=== PATIENT | female | born 1940 | race Caucasian/White ===

== ENCOUNTER 2017-10-12 20:08 | Emergency (ER) | payer OTHER, MEDICARE ==
[~2017-10-12] VITALS: Ht 162.6 cm; Wt 105.7 kg
[~2017-10-12 20:08] MED LIST: AMARYL1 MG PO; CLEOCIN HCL300 MG PO; KEFLEX500 MG PO; LOSARTAN-HCTZ1 EAC2 PO; METFORMIN; NORCO 5-325 TA1 EACH PO; SYNTHROID100 MCG PO; UNKNOWN BP MED
[2017-10-12] MEDS ORDERED: LOSARTAN-HCTZ1 EAC1 PO (20:36)
[2017-10-12] MEDS ORDERED: METFORMIN HCL1000 MG PO (20:37)
[2017-10-12] MEDS ORDERED: LEVOTHYROXINE200 MC1 PO (20:38)
[2017-10-12] MEDS ORDERED: PROMETHAZINE/C118 ML PO (21:28)
[2017-10-12] MEDS ORDERED: VENTOLIN HFA 1818 GM INH (21:28)
[2017-10-12] MEDS ORDERED: TESSALON PERLE100 MG PO (21:31)
== END 2017-10-12 21:45 | disposition home or self-care (01) ==
LOC: ER 20:08
DX: J20.8 Acute bronchitis due to other specified organisms (principal); B97.89 Other viral agents as the cause of diseases classified elsewhere; E03.9 Hypothyroidism, unspecified; E11.9 Type 2 diabetes mellitus without complications; M19.90 Unspecified osteoarthritis, unspecified site; I10 Essential (primary) hypertension; Z88.0 Allergy status to penicillin; Z88.2 Allergy status to sulfonamides

== ENCOUNTER 2019-09-08 21:44 | Inpatient (IN) | payer OTHER, MEDICARE ==
[~2019-09-08] VITALS: Ht 160 cm; Wt 100.1 kg
[~2019-09-08 21:44] MED LIST changes: +LEVOTHYROXINE200 MC1 PO; +LOSARTAN-HCTZ1 EAC1 PO; +METFORMIN HCL1000 MG PO; +PROMETHAZINE/C118 ML PO; +TESSALON PERLE100 MG PO; +VENTOLIN HFA 1818 GM INH
[2019-09-08 21:45] VITALS: BP 153/73
[2019-09-08 22:37] LABS: ABSOLUTE NEUTROPHILS 11.4 thou/uL (1.4-8.2); BASOPHILS 0.1 % (0.0-2.0); EOSINOPHILS 0.1 % (0.0-3.0); HEMATOCRIT 31.2 % (37.0-47.0); HEMOGLOBIN 10.1 gm/dL (12.0-15.0); LYMPHOCYTES 3.1 % (24.0-44.0); MCH 27.5 pg (26.0-34.0); MCHC 32.5 g/dL (28.0-37.0); MCV 84.7 fL (80.0-100.0); MONOCYTES 3.6 % (1.0-8.0); PLATELET COUNT 398 thou/uL (150-400); POLYS 93.1 % (36.0-66.0); RBC 3.68 mil/uL (4.20-5.00); RDW 14.5 % (10.5-14.5); WBC 12.3 thou/uL (4.0-11.0)
[2019-09-08 22:54] LABS: CALCIUM 9.7 mg/dL (8.5-10.1); POTASSIUM 4.5 mmol/L (3.5-5.1)
[2019-09-08 23:00] LABS: ALBUMIN 3.5 g/dL (3.4-5.0); DIRECT BILIRUBIN 0.1 mg/dL (<0.1-0.2); TOTAL BILIRUBIN 0.6 mg/dL (<0.1-1.0); TOTAL PROTEIN 7.7 g/dL (6.4-8.2)
[2019-09-09] VITALS (17 sets, daily range): BP systolic 129–177; BP diastolic 40–66
[2019-09-09 02:02] LABS: URINE BILIRUBIN NEGATIVE (Negative); URINE BLOOD NEGATIVE (Negative); URINE CLARITY CLEAR; URINE COLOR YELLOW; URINE GLUCOSE-RANDOM* 3+ (Negative); URINE KETONES TRACE (Negative); URINE LEUKOCYTES-REFLEX NEGATIVE (Negative); URINE NITRITE-REFLEX NEGATIVE (Negative); URINE PROTEIN (DIPSTICK) 1+ (Negative); URINE UROBILINOGEN 0.2 E.U./dl (0.2-1.0)
[2019-09-09 02:26] LABS: BACTERIA-REFLEX None Seen /HPF (None Seen); CASTS None Seen /LPF (None Seen); CRYSTALS None Seen /LPF (None Seen); MUCUS None Seen strn/LPF (None Seen); SQUAMOUS 0-3 Few /LPF (0-3); URINE RBC None Seen /HPF (0-2); URINE WBC-REFLEX None Seen /HPF (0-5)
--- NOTE | 2019-09-09 05:04 | NUR ---
PT ADMITTED TO UNIT AROUND 0330. PT NAUSEOUS AND VOMITTING UPON ARRIVAL TO FLOOR. PRN MEDICATION GIVEN FOR RELIEF. PT C/O PAIN ON SCALE OF 8. PT WAS IN AND OUT OF SLEEP FROM PAIN MEDICATION GIVEN PRIOR TO ARRIVAL. PT SEEN BY PHYSICIAN AND IS BEING TAKEN FOR SURGERY PER DR MCKEON. CONSENTS NEED TO BE SIGNED.
--- NOTE | 2019-09-09 20:21 | NUR ---
ASSUMED CARE OF PATIENT AT 0900 FROM OR. PATIENT ASLEEP AFTER GENERAL ANESTHESIA. PATIENT HAS LAP SITES IN PLACE X 3, CDI. PATIENT HAS A LEFT SIDED ELENO DRAIN. PATIENT SLEPT UNTIL MID AFTERNOON AND ASKED FOR PAIN MEDS. PAIN MEDS GIVEN X 2. PATIENT QUICKLY RETURNED TO SLEEP. BEDPAIN USED. FAMILY AT BEDSIDE. ASSESSMENTS CHARTED. PATIENT TO CONTINUE WITH POC.
--- NOTE | 2019-09-09 22:14 | NUR ---
PATIENT ASSESSED AND IS ALERT X 4. SKIN WARM AND DRY. RESP EVEN AND UNLABORED. HAS 4 ABDOMINAL INCISIONS CLOSEDS WITH DURABOND. NO REDDNESS TO AREAS. HAS A ELENO DRAIN TO LEFT ABDOMEN WITH SEROUS ANGUINOUS IN COLOR HAD 70 CC OUT DFURING THE DAY. HAD TO VOID ONLY 50 CC. HAD 150 OUT SINCE 9 AM FROM SURGERY. BLADDER SCANNED AND WAS 349. ORDER WAs if more than 400 cc straight cath x 1. TELE- SHOWS NSR. NG IN RIGHT NARE TO LOW SUCTION. RETURN IS DARK COFFE GROUND LOOKING. ON ROOM AIR. NO EDEMA NOTED. IV INFILTRATED AND RESTARTED IN RIGHT FOREARM WITH # 22. IV FLAUIDS INFUSING WELL. PAIN MED GIVEN WITH GOOD RESULTS. ROLLS FROM SIDE TO SIDE WELL. TCDB HAVE TO ENCOURGE PATIENT TO DO THIS. REMAINS NPO. ACCUCHECKS WILL BE DONE AT 0000. REMAINS A FULL CODE. CONT PLAN OF CARE. WILL MONITOR VOIDING STATUS.
[2019-09-10] VITALS (7 sets, daily range): BP systolic 143–179; BP diastolic 66–82
--- NOTE | 2019-09-10 01:27 | NUR ---
PAIN MEDICATION GIVEN WITH GOOD RELIEF. ALSO VOIDED ANOTHER 50CC. BLADDER SCANNED HER AFTER THAT AND GOT 697 CC SO STRAIGHT CATH HER AND RECEIVED 800 CC. FEELING ALOT BETTER NOW. ABDOMEN SOFT AND NOT TENDER EXCEPT THE INCISIONS. NO REDDNESS NOTED. IV SITE HEALTHY AND HAS FLUIDS INFUSING WELL. CONT TO MONITOR STATUS. REMAINS NPO. WITH NG TUBE IN RIGHT NARE GETTING DARK BROWN RETURN.
[2019-09-10 04:02] LABS: HEMATOCRIT 29.6 % (37.0-47.0); HEMOGLOBIN 9.3 gm/dL (12.0-15.0); MCH 27.2 pg (26.0-34.0); MCHC 31.6 g/dL (28.0-37.0); RBC 3.44 mil/uL (4.20-5.00); RDW 14.4 % (10.5-14.5); WBC 11.7 thou/uL (4.0-11.0)
[2019-09-10 04:14] LABS: CALCIUM 8.7 mg/dL (8.5-10.1); POTASSIUM 4.6 mmol/L (3.5-5.1)
--- NOTE | 2019-09-10 14:29 | NUR ---
pt up to side of bed, dangling legs. complained of pain and "too tired" to stand up. sat on side of bed for 5 minutes, steady, alert and oriented x4.
[2019-09-11 04:51] VITALS: BP 167/75
--- NOTE | 2019-09-11 07:00 | NUR ---
ASSUMED PT CARE AROUND 1900. PT RESTING IN BED. VSS AND C/O PAIN IN KNEES HOWEVER REFUSED PAIN MEDICATION AT THAT TIME. ABD INCISIONS C/D/I. ELENO DRAIN ADEQUATELY. NG DRAIN COFFEE GRAIN WITH OUTPUT MARKED. PT REQUESTED PAIN MEDICATION PRIOR TO SHIFT CHANGE. WILL CONTINUE TO MONITOR PT PER POC.
[2019-09-11 07:05] VITALS: BP 155/69
[2019-09-11 07:20] LABS: HEMATOCRIT 29.6 % (37.0-47.0); HEMOGLOBIN 9.1 gm/dL (12.0-15.0); MCH 26.9 pg (26.0-34.0); MCHC 30.8 g/dL (28.0-37.0); MCV 87.3 fL (80.0-100.0); RBC 3.39 mil/uL (4.20-5.00); RDW 14.9 % (10.5-14.5); WBC 12.1 thou/uL (4.0-11.0)
[2019-09-11 07:35] LABS: ALBUMIN 2.2 g/dL (3.4-5.0); CALCIUM 8.4 mg/dL (8.5-10.1); CREATININE 1.8 mg/dL (0.6-1.0); MAGNESIUM 1.9 mg/dL (1.8-2.4); PHOSPHORUS 2.4 mg/dL (2.5-4.9); POTASSIUM 4.3 mmol/L (3.5-5.1)
--- NOTE | 2019-09-11 10:26 | NUR ---
10am, pt sat on side of bed with minimal assist x2. she stood up and transfered to chair with steady gait, denies dizziness, sitting up in chair, pain rated 1/10. suresh drain was full with 100cc, emptied, will monitor.
[2019-09-11 11:35] VITALS: BP 131/60
--- NOTE | 2019-09-11 12:55 | NUR ---
Pt was well nourished prior to admit, so would consider clinimix PPN instead of TPN. Recommend change IVF to clinimix PPN at 100ml/hr for short term nutrition support 5-7 days until diet can advance.
[2019-09-11 15:40] VITALS: BP 164/86
--- NOTE | 2019-09-11 16:00 | EKG ---
[address] [address] ELECTROCARDIOGRAM REPORT Name: MICA CHU Room #: 211-P ADM IN M.R.#: [id number] Admission: 09/09/19 Attend Phys: Silvia Nunez MD Discharge: Date of : 44 Report #: [id number] THIS REPORT FOR: //name// [facility] ED Test Date: 2019-09-08 Test Time: 22:30:02 Pat Name: MICA CHU Department: Room: 211 Gender: F Community Engagement Specialist: Josr klein : 1940 Requested By: Samantha Valentine Order Number: [id number] MD: Hoang Ross Measurements Intervals [place] Rate: 107 P: 41 VT: 163 QRS: -1 QRSD: 89 T: 60 QT: 323 QTc: 431 Interpretive Statements Sinus tachycardia No previous ECG available for comparison Electronically Signed On 09-11-2019 16:00:14 [employer] by Hoang Ross [email or web address] <ELECTRONICALLY SIGNED> By: Hoang Ross MD 09/11/191599 29 Hoang Ross MD /BONNIE
--- NOTE | 2019-09-11 16:57 | NUR ---
met with patient who change of address clerk reports independent with adls. Patient admits with perforation of gastric ulcer. She reports she lives alone. All needs on one level with step to enter home. Her family at bedside. She uses no assistive device upon admission. Patient worked with therapy today. Cont with ng tube. [facility] following for dc planning.
[2019-09-11 19:09] VITALS: BP 188/86
[2019-09-11 23:41] VITALS: BP 146/68
[2019-09-12 03:57] VITALS: BP 189/81
--- NOTE | 2019-09-12 05:12 | NUR ---
PATIENTS CARES WERE ASSUMED A SHIFT CHANGE. PATIENT WAS ASSESSED ANDMEDS WERE PASSED. PATIENT DID HAVE C/O PAIN TWICE THIS FUR TRAPPER. MEDS WERE GIVEN AND PATIENT AND NURSIN AGREE PATIENT TO STAH IN THE [place]. HOURLY ROUNDS WERE DONE, THE BED IS IN A LOW AND LOCKED POSITION. THE BED ALARM IS O,
[2019-09-12 05:15] LABS: HEMATOCRIT 28.1 % (37.0-47.0); MCH 27.5 pg (26.0-34.0); MCHC 31.9 g/dL (28.0-37.0); MCV 85.9 fL (80.0-100.0); RBC 3.27 mil/uL (4.20-5.00); RDW 14.6 % (10.5-14.5); WBC 8.7 thou/uL (4.0-11.0)
[2019-09-12 05:37] LABS: ALBUMIN 1.9 g/dL (3.4-5.0); CALCIUM 8.8 mg/dL (8.5-10.1); CREATININE 1.6 mg/dL (0.6-1.0); MAGNESIUM 1.9 mg/dL (1.8-2.4); POTASSIUM 4.4 mmol/L (3.5-5.1); TOTAL BILIRUBIN 0.3 mg/dL (<0.1-1.0); TOTAL PROTEIN 6.1 g/dL (6.4-8.2)
[2019-09-12 07:18] VITALS: BP 191/87
--- NOTE | 2019-09-12 09:44 | NUR ---
PATIENT SEEN THIS DATE BY KEISHA GIL NP WITH DR. GARRISON. PATIENT IS A POTENTIAL CANDIDATE FOR [facility]. PATIENT TO HAVE UPPER GI ON THRUSDAY, 09/14/19. WILL CONTINUE TO FOLLOW. OUTSOLE CEMENTER INFORMED.
--- NOTE | 2019-09-12 10:05 | NUR ---
patient to have upper GI thur, 5n evaled. patient potetial 5n candidate they are following. Plan no dc over [place].
--- NOTE | 2019-09-12 10:31 | HC ---
[facility] [place] [address] CONSULTATION Name: VLADAYSHA Room #: 211-P ADM IN M.R.#: [id number] Admission: 09/09/19 Attend Phys: Silvia Nunez MD Discharge: Date of : 42 Report #: [id number] THIS REPORT FOR: //name// CC: [place] DATE OF SERVICE: 09/09/2019 CONSULTING PHYSICIAN: Dr. Bhagat. REASON FOR CONSULTATION: 1. Likely perforated peptic ulcer. 2. Aleve use, chronic. 3. Chronic neck and back pain. RECOMMENDATIONS: 1. Thank you for the consultation. I will follow along. 2. Given concern regarding perforated gastric or duodenal ulcer, we will take the patient for diagnostic laparoscopy, possible exploratory laparotomy, possible bowel resection, possible Ignacio patch in an emergent fashion. This was discussed with the patient and her [id number] who are in agreement. 3. IV antibiotics. 4. N.p.o. 5. We will likely have an NG tube postoperatively. 6. We will likely have an intra-abdominal drain postoperatively. 7. DVT prophylaxis when able. 8. Avoid NSAIDs. HISTORY OF PRESENT ILLNESS: The patient is a very pleasant 78-year-old female who developed epigastric abdominal pain, like she has never had before with earlier today. Shortly thereafter, she began vomiting. Pain worsened, so she presented to the ER. CT scan was performed that demonstrated free air. Her pain is sharp. She is unsure of any exacerbating or relieving factors, located in the middle of the abdomen and in the upper abdomen. She denies fevers, chills, night sweats, chest pain or shortness of air. She denies diarrhea or constipation. The patient does endorse taking two Aleve twice a day for chronic neck and back pain. Family has endorsed the ER that it might be even more than that. PAST MEDICAL HISTORY: 1. Hypothyroidism. 2. CKD. 3. Diabetes mellitus. 4. Hypertension. 5. Degenerative joint disease. [facility] [address] [place] [address] CONSULTATION Name: MICA CHU ANN Room #: 211-P [facility] IN M.R.#: [id number] Admission: 09/09/19 Attend Phys: Silvia Nunez MD Discharge: Date of : 42 Report #: [id number] PAST SURGICAL HISTORY: 1. Excision of greater saphenous veins, bilateral lower extremities. 2. Bilateral cataract surgery. 3. Denies any intraabdominal procedures. 4. Denies history of colonoscopy or EGD. SOCIAL HISTORY: Denies use of alcohol, tobacco or recreational drugs. She lives independently in her home with 3 cats. FAMILY HISTORY: Denies coagulopathy or malignancy. REVIEW OF SYSTEMS: CONSTITUTIONAL: No fever. No chills. HEENT: Denies blurring of vision, double vision, headaches, hearing loss, sinus drainage or sore throat. Denies blurring of vision, double vision, headaches, hearing loss, sinus drainage or sore throat. CARDIOVASCULAR: Denies chest pain, palpitations, orthopnea or paroxysmal nocturnal dyspnea. RESPIRATORY: Denies cough, wheezing, hemoptysis, or shortness of air. GASTROINTESTINAL: See above and below. GENITOURINARY: Denies dysuria or hematuria or kidney stones. No urinary frequency, urgency or incontinence. Denies dysuria or hematuria or kidney stones. No urinary frequency, urgency or incontinence. MUSCULOSKELETAL: No joint pain. No muscle pain. NEUROLOGICAL: Denies tremor, stroke or seizure. Denies tremor, stroke or seizure. HEMATOLOGIC AND LYMPHATICS: Denies easy bruising, easy bleeding or enlarged lymph nodes. SKIN: No rash or ulceration. ENDOCRINE: No heat or cold intolerance PSYCHIATRIC: Denies depression, anxiety, or schizophrenia. PHYSICAL EXAMINATION: VITAL SIGNS: Temperature 36.4, pulse 99, respiratory rate 18, blood pressure 142/66, pulse ox 95% on room air. GENERAL: No apparent distress, alert and oriented x3. HEENT: PERRLA, EOMI, MMM, NCAT NECK: Supple. No LAD CARDIOVASCULAR: Regular rhythm and rate. Hemodynamically stable. Normal capillary refill. Regular rhythm and rate. Hemodynamically stable. Normal capillary refill. PULMONARY: Nonlabored. Clear to auscultation bilaterally ABDOMEN: Soft, exquisitely tender to palpation in the epigastrium and right upper quadrant and left upper quadrant, voluntary guarding, no rebound, no rigidity, no hernias appreciated, morbidly obese. [address] [address] CONSULTATION Name: MICA CHU Room #: 211-P [facility] IN M.R.#: [id number] Admission: 09/09/19 Attend Phys: Silvia Nunez MD Discharge: Date of : 42 Report #: [id number] EXTREMITIES: Calves soft, nontender, no edema. SKIN: No rashes or bruises. PSYCHIATRIC: Normal mood and affect Normal mood and affect NEUROLOGICAL: Grossly intact. CN II-XII grossly intact. MUSCULOSKELETAL: 5/5 strength in upper extremities and lower extremities bilaterally LYMPHATICS: No cervical, inguinal, or supraclavicular lymphadenopathy. LABORATORY DATA: White blood count is 12.3, hemoglobin 10.1, hematocrit 31.2, platelets 393. Sodium 133, potassium 4.5, bicarbonate 20, creatinine 2, glucose 225. Lactic acid 1. Total bilirubin 0.6, AST 13, ALT 19, alkaline phosphatase 37, albumin 3.5, lipase 85. IMAGING: CT of the abdomen and pelvis, impression from preliminary readin. There is intra-abdominal free. Suggested perforation of the GI tract. 2. There is small amount of ascites. 3. There is small right pleural effusion. 4. No diverticulitis. No appendicitis. 5. There is diffuse wall thickening of the stomach. <ELECTRONICALLY SIGNED> By: Rafael Bhagat MD 09/12/19 1031 [id number] [id number] Rafael Bhagat MD /nt
[2019-09-12 15:45] VITALS: BP 154/78
--- NOTE | 2019-09-12 17:17 | NUR ---
VASCULAR ACCESS TEAM CONSULTED FOR PICC LINE. ORDER,CONSENT,HISTORY LABS,MEDS REVIEWED.5FR TL PICC TRIMMED TO 45CM INSERTED TO 2CM EXTERNAL INSERTED IN IFRAH BASILIC, VESSEL WIDELY PATENT WITH USG. PT TOLERATED WELL. STAT CXR ORDERED
--- NOTE | 2019-09-12 17:58 | NUR ---
CXR CONFIRMED PICC PLACEMENT NEAR CAJ. PICC RELEASED FOR IMMEDIATE USE PER PROTOCOL TO LINDSEY ALCOCER
[2019-09-12 19:10] VITALS: BP 151/61
--- NOTE | 2019-09-12 19:25 | NUR ---
ASSUMED CARE AT 0700, SHIFT ASSESSMENT DONE, MEDS GIVEN, VSS. REPORTS PAIN, PRN PAIN MEDS GIVEN. LSOT IV ACCESS, ORDER RECEIVED FOR PICC LINE, PICC LINE WAS PLACED THIS AFTERNOON. RECEIVING PPNAT 100 MLS/HR, STRICT NPO, NG TUBE TO LOW INTERMITTENT SUCTION. ELENO DRAIN IN PLACE, DRAINING PUS, 75 MLS OUT TONIGHT. WILL CONTINUE TO ASSESS AND ASSIST WITH ADLs NEEDED.
[2019-09-13 00:47] VITALS: BP 192/95
--- NOTE | 2019-09-13 04:17 | NUR ---
Patients cares were assumed at 2300. patient was assessed and meds were passed. Hourly rounds were made. The bed was in a low and locked position. The bed alarm is onn.
[2019-09-13 04:43] VITALS: BP 175/85
[2019-09-13 05:06] LABS: CALCIUM 8.8 mg/dL (8.5-10.1); CREATININE 1.6 mg/dL (0.6-1.0); MAGNESIUM 1.9 mg/dL (1.8-2.4); POTASSIUM 4.3 mmol/L (3.5-5.1)
[2019-09-13 15:54] VITALS: BP 131/64
--- NOTE | 2019-09-13 17:26 | NUR ---
ASSUMED CARE AT 0700, SHIFT ASSESSMENT DONE, STRICT NPO, REPORTED PAIN, PRN PAIN MEDS GIVEN. BP MEDS GIVEN SCHEDULED. NG TUBE TO CONTINUOUS SUCITON, PRODUCING VERY LITTLE OUTPUT, BROWNISH IN COLOR. ELENO DRAIN IN PLACE TO LEFT LOWER QUADRANT, PRODUCING PUS, HAD 100 ML THROUGHOUT THE DAY. RECEIVING PPN AT 100 MLS/HR. WILL CONTINUE TO ASSESS AND ASSIST WITH ADLs NEEDED.
[2019-09-13 20:42] VITALS: BP 139/60
[2019-09-14] VITALS (8 sets, daily range): BP systolic 124–179; BP diastolic 56–85
[2019-09-14 06:22] LABS: CREATININE 1.6 mg/dL (0.6-1.0); MAGNESIUM 1.8 mg/dL (1.8-2.4); PHOSPHORUS 3.5 mg/dL (2.5-4.9); POTASSIUM 4.4 mmol/L (3.5-5.1)
--- NOTE | 2019-09-14 07:35 | NUR ---
PROGRESS PT A/O X3 , DENIED PAIN AT BEGINNING OF SHIFT BUT REQUESTED MORPHINE AFTER GETTING ON BEDPAN. TAKING MORPHINE 4 MG IVP WITH EFFECT PT SLEEPS AFTER BUT RATES PAIN A 6 TO 7. NG TO RIGHT NARE INTACT PATENT WITH NO OUTPUT, BS PRESENT BUT HYPOACTIVE. PT VOIDING PER BEDPA REFUSES TO GET OOB TO TOLIET. WORKED WITH PT/OT YESTERDAY AND ENCOURAGED TO INCREASE ACTIVITY TODAY. ELENO DRAIN DRAINING LARGE AMOUNTS OF THIN WATERY YELLOW FLUID EMPTIED 350CC THIS SHIFT. IV ANTIBIOTICS CONTINUE, IVF'S INFUSING ORDERED LUNGS CLEAR TELE INTACT CONTINUE OC.
--- NOTE | 2019-09-14 14:00 | NUR ---
Case discussed with the care team today. Pt struggling with pain and NG in place. [facility] is following along and awaiting additional therapy imput to determine dc planning recommendations. NPO for GI series today. Will follow.
--- NOTE | 2019-09-14 17:42 | NUR ---
ASSUMED CARE AT 0700, SHIFT ASSESSMENT DONE, NPO THIS AM. WENT FOR A UPPER GI TEST TODAY, DR MCKEON WROTE ORDERS TO DC NG TUBE AND START PT ON CLEAR LIQUIDS AND PERFORMED. PT TOLEARAITNG WELL. BP MEDS HELD FOR 1800 BP< 140. WORKED WITH PHYSICAL THERAPHY, WILL CONTINUE TO ASSESS AND ASSIST WITH ADLs NEEDED.
[2019-09-15 03:01] VITALS: BP 151/64
[2019-09-15 04:24] LABS: HEMATOCRIT 26.7 % (37.0-47.0); HEMOGLOBIN 8.7 gm/dL (12.0-15.0); MCH 27.7 pg (26.0-34.0); MCHC 32.4 g/dL (28.0-37.0); MCV 85.6 fL (80.0-100.0); PLATELET COUNT 320 thou/uL (150-400); RBC 3.12 mil/uL (4.20-5.00); RDW 15.1 % (10.5-14.5); WBC 10.6 thou/uL (4.0-11.0)
[2019-09-15 04:45] LABS: ALBUMIN 1.6 g/dL (3.4-5.0); CALCIUM 8.9 mg/dL (8.5-10.1); PHOSPHORUS 3.7 mg/dL (2.5-4.9); POTASSIUM 4.6 mmol/L (3.5-5.1); TOTAL BILIRUBIN 0.1 mg/dL (<0.1-1.0); TOTAL PROTEIN 5.7 g/dL (6.4-8.2)
[2019-09-15 04:51] LABS: INR 1.1; PROTIME 11.3 Seconds (9.3-11.4)
[2019-09-15 05:08] LABS: TSH 0.663 uIU/mL (0.358-3.740)
--- NOTE | 2019-09-15 07:39 | NUR ---
ASSUMED PT CARE AT 1900, PT ALERT AND OIENTED, SCHEDULED PAIN MEDS GIVEN WITH COMPLETE RELIVE, ELENO DRAIN INTACT AND DRAINING WITHOUT DIFFICULTY, VS STABLE, ASSESSMENTS CHARTED, WILL CONTINUE TO MONITOR
[2019-09-15 08:00] VITALS: BP 153/73
--- NOTE | 2019-09-15 12:08 | NUR ---
ASSUMED CARE AT 0700, SHIFT ASSESSMENT DONE, MEDS GIVEN, VSS, REPORTED PAIN, PRN PAIN MEDS GIVEN. ON CLEAR LIQUID DIET, TOLERATING WELL. RECEIVING PPN, SR-ST ON MONITOR. WORKING WITH THERAPHY, NOT ABLE TO TOLERATE RAISING HEAD UP TO MORE THAN 20 DEGREES. PAIN TOLERANCE VERY LOW, TIRED AND SLEEPS MOST OF THE DAY. EDUCATED ABOUT THE IMPORTANCE OF MOBILITY. WILL CONTINUE TO ASSESS AND ASSIST WITH ADLs NEEDED.
[2019-09-15 12:18] VITALS: BP 126/67
[2019-09-15 12:45] LABS: ABSOLUTE NEUTROPHILS 8.6 thou/uL (1.4-8.2); ANISOCYTOSIS 1+; METAMYELOCYTES 3 %; MYELOCYTES 2 %
--- NOTE | 2019-09-15 14:50 | NUR ---
[facility] can accept the pt once she is off PPN, advancing her diet, and medically cleared. The [facility] liason can be reached at cell [phone] should the pt be ready this weekend. They will have to verify bed availabilty. The pt has her NG dc'd and is on clears today.
--- NOTE | 2019-09-15 15:24 | NUR ---
ASSUMED CARE OF PT APPROX 1330, NO NEEDS AT THIS TIME, ANSWERS SLOW YET A&0X4 AND CAN BE SARCASTICALLY HUMOROUS.SEE SEPARATE INTERVENTIONS FOR VARIOIUS ASSESSMENTS, GAVE HER WARM BLANKETS AND REFRESHED VELÁSQUEZ. ENCOURAGED HER TO CALL FOR ANY NEEDS
[2019-09-15 16:00] VITALS: BP 134/62
--- NOTE | 2019-09-15 18:57 | NUR ---
PATIENT NOT READY THIS DATE FOR REHAB ADMISSION. PATIENT MAY BE READY OVER WEEKEND. PATIENT WILL NEED TO BE ABLE TO PARTICIPATE IN 3 HOURS OF THERAPY A DAY, MEDICALLY STABLE AND ON A PROGRESSING DIET. AVELINA IS [facility] SPECTROMETRY MANAGER [employer] APPLICATOR AND CAN BE CALLED AT [phone]. PLEASE NOTIFY AVELINA IF PATIENT IS READY FOR DISCHARGE SO THAT THE MASS SPECTROMETRY MANAGER CAN START THE ADMISSION PROCESS. THANK YOU FOR THIS REFERRAL.
[2019-09-15 21:00] VITALS: BP 132/53; BP 188/82
[2019-09-16 00:35] VITALS: BP 151/57
[2019-09-16 05:55] VITALS: BP 141/54
[2019-09-16 06:50] LABS: HEMATOCRIT 25.2 % (37.0-47.0); HEMOGLOBIN 8.2 gm/dL (12.0-15.0); MCH 27.7 pg (26.0-34.0); MCHC 32.6 g/dL (28.0-37.0); PLATELET COUNT 337 thou/uL (150-400); RBC 2.96 mil/uL (4.20-5.00); RDW 15.2 % (10.5-14.5); WBC 10.3 thou/uL (4.0-11.0)
[2019-09-16 07:07] LABS: CALCIUM 9.3 mg/dL (8.5-10.1); CREATININE 2.2 mg/dL (0.6-1.0); PHOSPHORUS 4.5 mg/dL (2.5-4.9); POTASSIUM 4.9 mmol/L (3.5-5.1)
[2019-09-16 07:51] LABS: ABSOLUTE NEUTROPHILS 8.5 thou/uL (1.4-8.2); ANISOCYTOSIS 1+; METAMYELOCYTES 1 %; POLYCHROMASIA SLIGHT
[2019-09-16 09:19] VITALS: BP 137/47
[2019-09-16 12:36] VITALS: BP 136/55
[2019-09-16 17:44] VITALS: BP 130/63
--- NOTE | 2019-09-16 19:49 | NUR ---
ASSUMED CARE OF PATIENT AT 0700. ASSESSMENT COMPLETED. PATIENT'S SON, [id number] AND GRANDDAUGHTER AT THE BEDSIDE. PATIENT IS VERY LETHARGIC FROM OXYCODONE. DISCUSSION WITH FAMILY ABOUT PAIN MED TALK WITH THE PATIENT. THE FAMILY FEELS THOUGH SHE IS BEING GIVEN PAIN MEDS FOR GAS PAIN AND NOT SUSTAINING PAIN. I TOLD THEM THAT WE WILL TRY TO USE TYLENOL AND ASK MORE APPROPRIATE QUESTIONS BEFORE GIVING NARCOTICS. INFO RELAYED TO MACHINIST MECHANIC. UNABLE TO GET PATIENT UP TO AMBULATE DUE TO LATHARGY FOR ENTIRE DAY. PATIENT REFUSED TO EAT ANY MEALS. PATIENT HAD THREE INCONTINENT EPISODES WHERE SHE WAS PREVIOUSLY NOTIFYING THE STAFF TO GET UP AND USE THE BEDSIDE COMMODE. WE WILL CONTINUE TO WORK ON TITRATING OFF NARCOTICS, IF APPROPRIATE, IN ORDER TO GET THE PATIENT TO BE MORE AWARE AND ABLE TO AMBULATE. PATIENT TO CONTINUE WITH POC.
[2019-09-16 20:15] VITALS: BP 134/51
--- NOTE | 2019-09-16 23:04 | NUR ---
ASSUMED CARE OF PT AT 1900HRS. PT IS AOX4. FALL PRECAUTION IN PLACE. PT IS WEAK AND LATHERGIC. PPN AND ABX CONTINUED. PT WAS TACHY THIS SHIFT AND METOPROLOL WAS GIVEN EARLY. PT IS COMFORTABLE. NO S/S OF ACUTE DISTRESS. REPORTED OFF TO TONY AT 2300HRS
[2019-09-17 00:05] VITALS: BP 142/72
[2019-09-17 04:44] VITALS: BP 158/65
[2019-09-17 05:46] LABS: CALCIUM 9.3 mg/dL (8.5-10.1); CREATININE 2.2 mg/dL (0.6-1.0); POTASSIUM 4.9 mmol/L (3.5-5.1)
--- NOTE | 2019-09-17 06:59 | NUR ---
RECEIVED REPORT FROM ARINat RN.ASSUMED CARE AT 2300.PATIENT SLEEPING,ALERT WHEN TRY TO WAKE UP AND ANSWER QUESTIONS.REPOSITIONED Q2 HOURS AND NEEDED.MONITOR SHOWS SR,ST.ELENO INTACT.POC CONTINUED.
[2019-09-17 07:30] VITALS: BP 124/50
[2019-09-17 16:00] VITALS: BP 143/56
[2019-09-17 17:22] LABS: HEMATOCRIT 22.5 % (37.0-47.0); HEMOGLOBIN 7.1 gm/dL (12.0-15.0)
[2019-09-17 17:35] LABS: ALBUMIN 1.7 g/dL (3.4-5.0); CALCIUM 8.9 mg/dL (8.5-10.1); PHOSPHORUS 3.9 mg/dL (2.5-4.9); POTASSIUM 4.7 mmol/L (3.5-5.1)
[2019-09-17 19:29] VITALS: BP 153/58
--- NOTE | 2019-09-17 20:05 | NUR ---
ASSUMED CARE OF PATIENT AT 0700. ASSESSMENT COMPLETED. TELE STRIP PRINTED AND PLACED IN CHART. PATIENT'S SON AND DAUGHTER IN LAW AT THE BEDSIDE. PATIENT HAS BEEN INCONTINENT TO URINE FOR 24 HOURS ON NARCOTICS. LAST OXY GIVEN 09/16 AT 0630. PATIENT ALTERNATING TRAMADOL AND TYLENOL TODAY WITHOUT DIFFICULTY. PATIENT TRANSFERRED TO CHAIR FOR THE MAJORITY OF THE DAY, TO THE BEDSIDE COMMODE AND TO CT VIA WHEELCHAIR. PATIENT AWAKE FOR THE MAJORITY OF THE DAY. PATIENT ON PPN AND NPO AT THIS TIME OTHER THAN MEDS. PATIENT'S HEEL ELEVATED OFF THE BED. CONTINUE WITH POC.
[2019-09-18 00:57] VITALS: BP 141/66; BP 154/76
[2019-09-18 03:14] VITALS: BP 170/80
--- NOTE | 2019-09-18 05:49 | NUR ---
ASSUMED PT CARE AT 1900. NO SIGN OF DISTRESS NOTED IN PT. PT IS ALERT AND ORIENTED WITH NO SIGN OF DISTRESS NOTED NOTED IN PT. FALL PRECAUTION IN PLACE. DENIES ANY. BLOOD PRODUCT ADMINISTERED. TOLERATED BLOOD TRANSFUSION. ASSESSMENT COMPLETED AND DOCUMENTED. PT IS STABLE. SCHEDULED MEDS ADMINISTERED TO PT. DENIES ANY FURTHER NEEDS AT THIS TIME.
[2019-09-18 06:49] LABS: HEMATOCRIT 28.3 % (37.0-47.0); MCH 27.2 pg (26.0-34.0); MCHC 32.5 g/dL (28.0-37.0); MCV 83.8 fL (80.0-100.0); PLATELET COUNT 408 thou/uL (150-400); RBC 3.38 mil/uL (4.20-5.00); RDW 14.9 % (10.5-14.5); WBC 12.3 thou/uL (4.0-11.0)
[2019-09-18 06:53] LABS: HEMOGLOBIN 9.2 gm/dL (12.0-15.0)
[2019-09-18 07:06] LABS: ALBUMIN 1.9 g/dL (3.4-5.0); CALCIUM 9.5 mg/dL (8.5-10.1); PHOSPHORUS 3.8 mg/dL (2.5-4.9); POTASSIUM 4.8 mmol/L (3.5-5.1); TOTAL BILIRUBIN 0.3 mg/dL (<0.1-1.0); TOTAL PROTEIN 6.2 g/dL (6.4-8.2)
[2019-09-18 07:53] VITALS: BP 143/65
[2019-09-18 09:46] LABS: ABSOLUTE NEUTROPHILS 10.1 thou/uL (1.4-8.2); ANISOCYTOSIS 1+; ATYPICAL LYMPHS 1 %; METAMYELOCYTES 1 %
--- NOTE | 2019-09-18 12:42 | 2DMMODE ---
[facility] [address] [employer] [place] [address] 2 D/M-MODE ECHOCARDIOGRAM Name: MICA CHU ANN Room #: 211-P ADM IN M.R.#: [id number] Admission: 09/09/19 Attend Phys: Silvia Nunez MD Discharge: Date of : 42 Report #: [id number] THIS REPORT FOR: //name// APPROVED REPORT Study performed: 09/18/2019 11:22:55 EXAM: Comprehensive 2D, Doppler, and color-flow Echocardiogram Patient Location: Bedside Room #: 211 Status: routine BSA: 1.99 HR: 90 bpm BP: 143/65 mmHg Rhythm: NSR Other Information Study Quality: Adequate Technically limited study due to obesity and patient scanned in chair.. Indications Plerual effusions. Hx: DM, HTN. 2D Dimensions RVDd: 27.25 mm IVSd: 12.14 (7-11mm) LVOT Diam: 20.46 (18-24mm) LVDd: 49.18 mm PWd: 11.43 (7-11mm) LVDs: 29.17 (25-40mm) Aortic Root: 30.67 mm Volumes Left Atrial Volume (Systole) Single Plane 4CH: 54.36 mL Single Plane 2CH: 39.74 mL LA ESV Index: 26.00 mL/m2 Aortic Valve AoV Peak Gibson.: 1.56 m/s AO Peak Gr.: 9.74 mmHg LVOT Max P.51 mmHg LVOT Max V: 0.94 m/s GABRIELE Vmax: 1.97 cm2 Mitral Valve E/A Ratio: 0.7 [facility] [address] [address] 2 D/M-MODE ECHOCARDIOGRAM Name: MICA CHU ANN Room #: 211-P [facility].#: [id number] Admission: 09/09/19 Attend Phys: Silvia Nunez MD Discharge: Date of : 42 Report #: [id number] Decel. Time: 193.59 ms MV E Max Gibson.: 0.70 m/s MV A Gibson.: 1.00 m/s MV PHT: 56.14 ms IVRT: 69.20 ms Pulmonary Valve PV Peak Gibson.: 1.17 m/s PV Peak Gr.: 5.50 mmHg Pulmonary Vein P Vein S: 0.47 m/s P Vein A: 0.37 m/s P Vein D: 0.33 m/s P Vein A Dur.: 96.9 msec P Vein S/D Ratio: 1.42 Tricuspid Valve TR Peak Gibson.: 2.64 m/s TR Peak Gr.: 28.00 mmHg Left Ventricle The left ventricle is normal size. There is normal LV segmental wall motion. Mild basal septal hypertrophy is present. Left ventricular systolic function is normal. LVEF is 60-65%. Mild diastolic dysfunction is present (impaired relaxation pattern). Right Ventricle The right ventricle is normal size. The right ventricular systolic function is normal. Atria The left atrium size is normal. The right atrium size is normal. Aortic Valve The aortic valve is normal in structure. Trace aortic regurgitation. There is no aortic valvular stenosis. Mitral Valve The mitral valve is normal in structure. There is no mitral valve regurgitation noted. No evidence of mitral valve stenosis. Tricuspid Valve The tricuspid valve is normal in structure. Trace tricuspid regurgitation. Estimated PAP is 28mmHg plus the right atrial pressure. Pulmonic Valve [facility] [place] [address] 2 D/M-MODE ECHOCARDIOGRAM Name: MICA CHU ANN Room #: 211-P ADM IN M.R.#: [id number] Admission: 09/09/19 Attend Phys: Silvia Nunez MD Discharge: Date of : 42 Report #: [id number] The pulmonary valve is normal in structure. There is no pulmonic valvular regurgitation. Great Vessels The aortic root is normal in size. Ascending aorta is not well visualized. IVC is normal in size and collapses >50% with inspiration. Pericardium There is no pericardial effusion. <Conclusion> The left ventricle is normal size. LVEF is 60-65%. The aortic valve is normal in structure. Trace aortic regurgitation. The mitral valve is normal in structure. The tricuspid valve is normal in structure. Trace tricuspid regurgitation. Estimated PAP is 28mmHg plus the right atrial pressure. The pulmonary valve is normal in structure. There is no pulmonic valvular regurgitation. There is no pericardial effusion. <ELECTRONICALLY SIGNED> By: Edwin Amezcua MD 09/18/19 1241 1241 [id number] Edwin Amezcua MD /INF
--- NOTE | 2019-09-18 16:54 | NUR ---
[facility] following for possible admission once medically stable and no longer on TPN
[2019-09-18 17:16] VITALS: BP 147/63
--- NOTE | 2019-09-18 17:47 | NUR ---
ASSUMED CARE OF PT AT SHIFT CHANGE. ASSESSMENT CHARTED. MEDS GIVEN PER MAR. VSS. PT A&OX4. MCMAHON IN PLACE. PT IS X2 ASSIST D/T WEAKNESS. C/O PAIN TREATED WITH PO MEDS WITH RELIEF. HEELS FLOATED WITH A PILLOW. WILL CONTINUE TO MONITOR AND FOLLOW POC.
[2019-09-18 20:11] VITALS: BP 135/60
--- NOTE | 2019-09-19 04:02 | NUR ---
PT ALERT AND ORIENTED. DENIES CHEST PAIN BUT GENERALIZED AND ABDPAIN. TRAMADOL AND SCHEDULED TYLENOL GIVEN. VITALS STABLE WITH BP ELEVATE. NO FEVER. SEVERAL DIARRHEA EPISODES DUE TO BOWEL MEDS. PPN AT 75ML/HR. DENIES NAUSEA AND VOMITING. MCMAHON CATHETER INTACT AND PATENT. NO FURTHER C/O. WILL CONTINUE TO FOLLOW POC.
[2019-09-19 05:10] VITALS: BP 166/58
[2019-09-19 05:49] LABS: HEMATOCRIT 27.5 % (37.0-47.0); HEMOGLOBIN 8.8 gm/dL (12.0-15.0); MCH 27.1 pg (26.0-34.0); MCHC 32.2 g/dL (28.0-37.0); MCV 84.3 fL (80.0-100.0); RBC 3.26 mil/uL (4.20-5.00); RDW 15.3 % (10.5-14.5); WBC 10.8 thou/uL (4.0-11.0)
[2019-09-19 05:52] LABS: CALCIUM 9.1 mg/dL (8.5-10.1); CREATININE 1.8 mg/dL (0.6-1.0); POTASSIUM 4.7 mmol/L (3.5-5.1)
[2019-09-19 08:00] VITALS: BP 157/71
--- NOTE | 2019-09-19 16:02 | NUR ---
[facility] can accept once medically stable.
[2019-09-19 16:38] VITALS: BP 165/71
[2019-09-19 17:42] VITALS: BP 156/65
[2019-09-19 19:02] VITALS: BP 145/59
--- NOTE | 2019-09-19 20:21 | NUR ---
Pt transfered to floor around 1730 per wc from [facility] in stable condition. Blood sugar was 351 at 1800.Insulin and scheduled meds given as ordered.PPN infusing as ordered.Will continue to monitor.
[2019-09-20 07:18] LABS: HEMATOCRIT 27.5 % (37.0-47.0); HEMOGLOBIN 8.8 gm/dL (12.0-15.0); MCH 26.6 pg (26.0-34.0); MCHC 31.8 g/dL (28.0-37.0); MCV 83.6 fL (80.0-100.0); RBC 3.29 mil/uL (4.20-5.00); RDW 14.9 % (10.5-14.5); WBC 13.2 thou/uL (4.0-11.0)
[2019-09-20 07:43] LABS: CALCIUM 9.2 mg/dL (8.5-10.1); CREATININE 1.7 mg/dL (0.6-1.0); POTASSIUM 4.8 mmol/L (3.5-5.1)
[2019-09-20 08:00] VITALS: BP 150/60
--- NOTE | 2019-09-20 08:19 | NUR ---
progress pt a/o x4 sagar picc line, wray and suresh in place draining clear fluid. large amounts of urine incontinent of 2 small loose stools after passing flatus. tolerating full liquids had two puddings. ppn and accuchecks continue progressing with plan of care.
[2019-09-20] MEDS ORDERED: TOPROL XL25 MG PO (12:17)
[2019-09-20] MEDS ORDERED: MIRALAX17 GM PO (12:18)
[2019-09-20] MEDS ORDERED: SODIUM BICARBO650 M3 PO (12:18)
[2019-09-20] MEDS ORDERED: PROTONIX40 M1 PO (12:19)
[2019-09-20] MEDS ORDERED: SENNA-TIME S T1 EACH PO (12:19)
[2019-09-20] MEDS ORDERED: NOVOLOG100 UNIT/1 SUBQ (12:20)
[2019-09-20] MEDS ORDERED: LANTUS SUBQ (12:20)
[2019-09-20] MEDS ORDERED: CEFTRIAXON1 GM/50 M1 IVPB (12:26)
[2019-09-20] MEDS ORDERED: METRONIDAZOLE500 M6 IVPB (12:27)
[2019-09-20 15:00] VITALS: BP 103/88
[2019-09-20] MEDS ORDERED: TRAMADOL 50 MG50 MG PO (17:52)
[2019-09-20] MEDS ORDERED: TYLENOL ARTHRI650 MG PO (17:52)
[2019-09-20] MEDS ORDERED: ONDANSETRON HCL4 M1 IV PUSH (17:52)
[2019-09-20 18:11] VITALS: BP 103/88
--- NOTE | 2019-09-20 20:27 | NUR ---
PATIENT ALERT AND ORIENTED AND COMPLAINING OF NAUSEA THIS AM. PATIENT THINKS NAUSEA MAY BE FROM DRINKING MILK. AFTERNOON PATIENT HAD NO FURTHER NAUSEA AND WAS UP TO RECLINER CHAIR THIS AM AND THIS AFTERNOON. PATIENT DISCHARGED TO REHAB UNIT 1900 IN STABLE CONDITION WITH DISCHARGE ORDERS AND ALL PERSONAL BELONGINGS. REPORT GIVEN TO LEODAN DURANT. TRANSPORTED TO REHAB VIA WHEELCHAIR.
== END 2019-09-20 19:00 | DRG 326 ==
LOC: ER 21:44 → 2N 09-09 02:05 → EROBS 09-09 02:05 → 2N 09-09 03:26 → 4W 09-19 17:42
PROVIDERS: Emergency Medicine; Hospitalist; Internal Medicine; Nurse Practitioner Family; Surgery; ADMIT Internal Medicine
DX: K25.5 Chronic or unspecified gastric ulcer with perforation (principal); K65.8 Other peritonitis; E43 Unspecified severe protein-calorie malnutrition; J90 Pleural effusion, not elsewhere classified; N17.9 Acute kidney failure, unspecified; K56.7 Ileus, unspecified; N18.4 Chronic kidney disease, stage 4 (severe); E03.9 Hypothyroidism, unspecified; J30.2 Other seasonal allergic rhinitis; M54.9 Dorsalgia, unspecified; M54.2 Cervicalgia; G89.29 Other chronic pain; M17.10 Unilateral primary osteoarthritis, unspecified knee; E11.22 Type 2 diabetes mellitus with diabetic chronic kidney disease; I12.9 Hypertensive chronic kidney disease with stage 1 through stage 4 chronic kidney disease, or unspecified chronic kidney disease; K31.89 Other diseases of stomach and duodenum; K66.8 Other specified disorders of peritoneum; D64.9 Anemia, unspecified; K59.00 Constipation, unspecified; Z79.1 Long term (current) use of non-steroidal anti-inflammatories (NSAID); Z79.84 Long term (current) use of oral hypoglycemic drugs; Z79.899 Other long term (current) drug therapy; Z88.0 Allergy status to penicillin; Z88.2 Allergy status to sulfonamides; Z98.42 Cataract extraction status, left eye; Z98.41 Cataract extraction status, right eye; Z68.39 Body mass index [BMI] 39.0-39.9, adult
CPT/HCPCS: 10047; 10081; 10797; 27000; 50101; 50249; 50331; 50386; 50445; 50555; 50558; 51489; 52265; 53307; 53310; 54022; 54118; 56462; 56525; 56526; 56528; 57092; 57103; 62110; 62900; 70005

== ENCOUNTER 2019-09-20 14:15 | Inpatient (IN) | payer OTHER, MEDICARE ==
[~2019-09-20] VITALS: Ht 160 cm; Wt 103.6 kg
[~2019-09-20 14:15] MED LIST changes: +CEFTRIAXON1 GM/50 M1 IVPB; +LANTUS SUBQ; +METRONIDAZOLE500 M6 IVPB; +MIRALAX17 GM PO; +NOVOLOG100 UNIT/1 SUBQ; +PROTONIX40 M1 PO; +SENNA-TIME S T1 EACH PO; +SODIUM BICARBO650 M3 PO; +TOPROL XL25 MG PO
[2019-09-20] MEDS ORDERED: TRAMADOL 50 MG50 MG PO (17:52)
[2019-09-20] MEDS ORDERED: ONDANSETRON HCL4 M1 IV PUSH (17:52)
[2019-09-20] MEDS ORDERED: TYLENOL ARTHRI650 MG PO (17:52)
[2019-09-20 19:11] VITALS: BP 155/57
--- NOTE | 2019-09-21 01:15 | NUR ---
PT ARRIVED TO UNIT APPROX 1900 VIA W/C FROM [facility]. PT ALERT AND ORIENTED X4, ASSISTED TO BED FROM W/C. PT ORIENTED TO ROOM AND CALL LIGHT. PT SOMEWHAT FRUSTRATED AND TEARFUL SHE STATED SHE HAD INCONTINENT BOWEL MOVEMENT EARLIER IN DAY. PT GIVEN MUCH EMOTIONAL SUPPORT. PT DENIED COMPLAINTS OF PAIN. ELENO BULB DRAIN IN PLACE UPON ARRIVAL, FULL AND EMPTIED 40CCS. CENTRAL LINE TO RIGHT UPPER ARM WITH DRESSING C/D/I. PT ASSISTED WITH REPOSITIONING IN BED. PT TOOK HS MEDS WITH WATER TOLERATING WELL. PT APPEARS TO BE SLEEPING SOUNDLY WITH HOURLY ROUNDING CHECKS. BED ALARM ON AND CALL LIGHT IN REACH. WILL CONTINUE TO MONITOR.
[2019-09-21 06:20] LABS: HEMATOCRIT 26.7 % (37.0-47.0); HEMOGLOBIN 8.6 gm/dL (12.0-15.0); MCH 27.2 pg (26.0-34.0); MCHC 32.3 g/dL (28.0-37.0); RBC 3.18 mil/uL (4.20-5.00); RDW 15.1 % (10.5-14.5)
[2019-09-21 06:26] LABS: CALCIUM 8.9 mg/dL (8.5-10.1); CREATININE 1.7 mg/dL (0.6-1.0); POTASSIUM 4.8 mmol/L (3.5-5.1)
--- NOTE | 2019-09-21 07:00 | NUR ---
chart review, pt up in bed. intro to cm, dcp, transition of care and team meeting. pt a & ox 3, pleasant and able to make her needs know. naheed reported " lives alone in house, 1 step into the kitchen from the garage. still drives vehicle. independent prior to admit. cooks, cleans, sit in tub to bath, and manage own medication. primary care dr delvalle. no past hh or rehab"/pt. will cont following as needed for dc needs.
[2019-09-21 08:55] VITALS: BP 138/63
--- NOTE | 2019-09-21 15:50 | NUR ---
WOUND CONSULT; AN ASSESSMENT WAS DONE OF THE LEFT BUTTOCK AND THE LEFT HEEL. THE LEFT HEEL IS TENDER TO TOUCH. BRISING IS PRESENT. THE S/S ARE CONSITANT WITH A DTI. THE LEFT BUTTOCK HAS AN AREA THAT IS OPEN, AND THE WOUND BED HAS NON VIABLE TISSUE. RECCOMENDATIONS; 1-LOW AIR LOSS PUMP THERAPY 2-PRAFO BOOTS BILATERALLY WHILE IN BED. 3-THERAHONEY TO THE LEFT BUTTOCKS WOUND, COVER WITH A BOARDER FOAM CHANGE M/W/F PRN 4-2QH TURNS WHILE IN BED. DISCUSSED WITH LEODAN
[2019-09-21 19:12] VITALS: BP 140/65
--- NOTE | 2019-09-21 19:47 | NUR ---
ASSUMED CARE OF PT AT 0715. PT IS A&OX4 AND VITAL SIGNS ARE STABLE. ACCU CHECKS ACHS AND MANAGED WITH INSULIN. LAPROSCOPIC SURGICAL SITES TO ABDOMEN WELL APPROXIMATED WITH SURGAICAL GLUE, OPEN TO AIR. ELENO DRAIN TO LLQ WITH SEROUS DRAINAGE, DRAINED MULTIPLE TIMES DURING SHIFT. BRUISE TO LEFT HEEL, PRAFO BOOTS, LOW AIRLOSS MATTRESS, WOUND CARE CONSULT ORDERED. WOUND TO LEFT BUTTOCK NOTED ON ASSESSMENT, WOUND CARE NOTIFIED OF WOUND, Z-GUARD PLACED TO AREA AT THIS TIME. TRIPLE LUMEN PICC LINE TO [facility], LINES FLUSHED AND CLEANED, BLOOD RETURN IN ALL LINES, DRESSING C/D/I, NO REDNESS, EDEMA, OR DRAINAGE NOTED AT THE SITE. REPORTS DISCOMFORT TO ABDOMEN AND SHOULDERS AFTER DINNER, PO PAIN MEDICATION PROVIDED. AMBULATES WITH 1 PERSON USING GAIT BELT AND WALKER. REPORTED NAUSEA DURING PT, BUT REFUSED NAUSEA MEDICATIONS. AT SHIFT CHANGE PT APPEARS TO BE WITHDRAWN AND TEARFUL, REPORTS MISSING HER HOME. FALL PRECAUTIONS IN PLACE AND NURSING WILL CONTINUE TO MONITOR.
--- NOTE | 2019-09-22 00:14 | NUR ---
PT ASSESSMENT COMPLETED AND VSS. MEDS GIVEN ORDERED AND WELL TOLERATED. FALL PRECAUTIONS IN PLACE. UP TO THE BATHROOM WITH ASST/GAIT/WALKER. IV ANTIBIOTICS GIVEN ORDERED. ELENO DRAINING WNL. SURGICAL SITES X 5 HEALING. ATTEMPTED TO TAKE PICTURES OF LEFT HEEL AND LEFT BUTTOCK FOR WOUND CARE. CAMERA BATTERIES DID NOT WORK. CHARGING BOTH NOW. DID PUT DRESSINGS ORDERED ON LEFT BUTTOCK AND LEFT HEEL. BOOT APPLIED TO LEFT HEEL. PT TIRED AND DID NOT WANT TO BE BOTHERED ANYMORE TONIGHT. WILL INFORM DAY RN TO TAKE PICTURES OF BOTH WOUNDS. PT SLEEPING WELL. WILL CONTINUE TO MONITOR FREQUENTLY.
[2019-09-22 08:00] VITALS: BP 151/57
--- NOTE | 2019-09-22 09:14 | NUR ---
ASSUMED CARE OF PT AT 0715. PT IS A&OX4 ABLE TO VOICE HER NEEDS. VSS ON RA. ACCU CHECKS ACHS. BS 126, HELD LANTUS AND LISPRO THIS AM SINCE PT DOESN'T EAT THIS AM. ON FULL LIQUID ONLY. WILL NOTIFY DOCTOR BEFORE GIVE INSULIN. LAPROSCOPIC SURGICAL SITES TO ABDOMEN WELL APPROXIMATED WITH SURGAICAL GLUE, OPEN TO AIR. ELENO DRAIN TO LLQ WITH SEROUS DRAINAGE, HAD 75CC SERO DRAINAGE THIS AM. BRUISE TO LEFT HEEL, PRAFO BOOTS, LOW AIRLOSS MATTRESS. ADMISSION PICTURES ON LEFT BUTTOCK TOOK THIS AM. DRESSING CHANGED ORDERED. LEFT HEEL OPTIFOAM DRESSING C/D/I AT THIS TIME. TRIPLE LUMEN PICC LINE TO E, LINES FLUSHED AND CLEANED, BLOOD RETURN IN ALL LINES, DRESSING C/D/I, NO REDNESS, EDEMA, OR DRAINAGE NOTED AT THE SITE. CONTINUE TO BE ON CEFTRIAXON AND FLAGYL AT THIS MOMENT. REPORTS DISCOMFORT TO ABDOMEN, DENIES NEED FOR PRN ZOFRAN AT THIS AM. ENCOURAGED PT TO LET STAFF KNOW WHEN SHE NEEDS ZOFRAN. PROTONIX GIVEN ORDERED. AMBULATES WITH 1 PERSON USING GAIT BELT AND WALKER. OFFERED SUPPORTIVE CARE. ENCOURAGED PT TO VOICE HER NEEDS. MEDS GIVEN ONE AT THE TIME WITH THIN WATER. REASSESSMENT PER CHART. ASSISTED PT TO BATHROOM. HAD LOOSE STOOL THIS AM. REFUSES MIRALAX. WILL ASK FOR PROBIOTIC. SINCE PT REFUSES TO EAT YOGURT. SITING ON RECLINER. LEGS ELEVATED ON PILLOWS. PT WEAR PRAFO BOOT WHILE IN BED. ENCOURAGED PT TURN Q2HRS WHILE IN BED. PT UP AND PARTICIPATES WITH THERAPY AND UP TO BATHROOM FREQUENTLY. FALL PRECAUTIONS IN PLACE AND NURSING WILL CONTINUE TO MONITOR.
--- NOTE | 2019-09-22 13:56 | NUR ---
team meeting, recommendation: off load heels. low endurance thearpy. diff sleeping. re team, dc 09/27/2019 with hh (pt, ot, nursing). full liquid diet per surgery. will need fww.
[2019-09-22 19:05] VITALS: BP 154/74
[2019-09-23 00:06] LABS: GLYCOHEMOGLOBIN (HGB A1C) 8.7 % (4.8-5.6)
--- NOTE | 2019-09-23 04:40 | NUR ---
PATIENT REFUSED ALL BUT ONE TURN TO SIDE, REFUSED PRAFO BOOT, BUT APPRECIATED LEGS ELEVATED WITH 2 PILLOWS PLUS FOOT OF BED UP IN ORDER TO ELEVATE LEGS AND OFFLOAD HEELS. AIR PUMP HOOKED TO BED TO CREATE LOW AIR LOSS THERAPY. TO TOILET WITH SBA AND WALKER TWICE FOR VOID AND ONCE FOR BM, CONTINENTLY BUT WITH VERY LITTLE WARNING, BOTH DOSES OF MIRALAX HELD/REFUSED YESTERDAY, IV FLAGYL IS SUSPECTED CAUSE AND SHE WONDERS OUT LOUD IF SHE NEEDS TO CONTINUE TAKING IT.
[2019-09-23 07:15] VITALS: BP 144/61
--- NOTE | 2019-09-23 09:53 | NUR ---
ASSUMED CARE AT 0700. PATIENT IS ALERT AND ORIENTED X4. PATIENT CAN BE ANXIOUS AT TIMES. PATIENT IS ON LOW ENDURANCE PROGRAM. PATIENT BRODERICK'S, ECONOMIC CONSULTANT ARE EQUAL. LUNGS ARE CLEAR. ABD IS SOFT WITH BSX4. MULTIPLE BM'S TODAY. LAXATIVES HELD. ELENO CONTINUES TO DRAIN LARGE AMOUNTS SEROUS FLUID. PATIENT IS UP IN THE CHAIR FOR MEALS. PATIENT HAS RIGHT UPPER ARM PICC LINE THAT IS TRIPLE LUMIN. IV SITE WITHOUT REDNESS OR SWELLING. PATIENT IS UP WITH ASSIST OF 1 STAFF, GAIT BELT AND WALKER. PATIENT CONTINUES ON IV ABT WITHOUT ADVERSE REACTIONS. FALL AND SAFETY PROTOCOLS IN PLACE. C/O ABD PAIN. MEDICATED WITH PRN PAIN MED. CONTINUES TO PROGRESS SLOWLY TOWARDS D/C GOALS. WILL CONTINUE TO MONITER.
[2019-09-23 20:00] VITALS: BP 136/57
--- NOTE | 2019-09-24 03:36 | NUR ---
UP TO TOILET WITH GAIT BELT, WALKER, AND STANDBY ASSIST. INCONTINENT OF LOOSE STOOL ON THE WAY DUE TO SUDDEN URGE. IS REFUSING MIRALAX FOR THE PAST FEW DAYS, BLAMES LOOSE STOOLS ON IV FLAGYL. IFRAH PICC LINE PATENT FOR IV ABX. ELENO PATENT FOR LARGE AMOUNT YELLOW FLUID. HAS BEEN C/O FEELING CHILLY UNTIL JUST NOW.
[2019-09-24 05:13] LABS: ABSOLUTE NEUTROPHILS 6.8 thou/uL (1.4-8.2); BASOPHILS 1.2 % (0.0-2.0); EOSINOPHILS 1.5 % (0.0-3.0); HEMATOCRIT 25.7 % (37.0-47.0); HEMOGLOBIN 8.3 gm/dL (12.0-15.0); LYMPHOCYTES 10.5 % (24.0-44.0); MCH 27.3 pg (26.0-34.0); MCHC 32.4 g/dL (28.0-37.0); MCV 84.2 fL (80.0-100.0); MONOCYTES 6.6 % (1.0-8.0); PLATELET COUNT 466 thou/uL (150-400); POLYS 80.2 % (36.0-66.0); RBC 3.06 mil/uL (4.20-5.00); WBC 8.4 thou/uL (4.0-11.0)
[2019-09-24 05:33] LABS: CALCIUM 8.3 mg/dL (8.5-10.1); CREATININE 1.7 mg/dL (0.6-1.0); POTASSIUM 4.3 mmol/L (3.5-5.1)
[2019-09-24 07:20] VITALS: BP 153/65
--- NOTE | 2019-09-24 10:16 | NUR ---
ASSUMED CARE AT 0700. PATIENT IS ALERT AND ORIENTED X4. PATIENT BRODERICK, CLASS C DRIVER ARE EQUAL. LUNGS ARE CLEAR. ABD IS SOFT WITH BSX4. UP TO THE BATHRROOM INDEPENDENTLY. PATIENT IS MOD/I IN ROOM WITH WALKER AND SHOES OR SKID PROOF SOCKS. PATIENT SAT ON SIDE OF BED FOR MEALS. PATIENT CONTINUES ON FULL LIQUID DIET. LAXATIVES HELD AGAIN TODAY. PATIENT STATES "I AM STILL HAVING SMALL BM'S TODAY." PATIENT HAS LAP SITES THAT ARE DRY AND INTACT. UP TO THE BATHROOM TO VOID RACHNA COLORED URINE. PATIENT HAS A BLISTER TO HER LEFT HEEL. DRESSING CHANGED AND NEW OPTIFOAM APPLIED. FALL AND SAFETY PROTOCOLS IN PLACE. C/O ABD PAIN. MEDICATED WITH PRN PAIN MED. PATIENT CONTINUES TO PROGRESS SLOWLY TOWARDS D/C GOALS. PATIENT REPOSITIONED ON HER LEFT SIDE. WILL CONTINUE TO MONITER.
--- NOTE | 2019-09-24 10:27 | NUR ---
PATIENT CONTINIUES ON IV ABT WITHOUT ADVERSE REACTION. PATIENT HAS TRIPLE LUMIN PICC IN HER UPPER RIGHT ARM. IV STIE WITHOUT REDNESS OR SWELLING. ALL PORTS FLUSHED WELL PRIOR TO ADMINISTRATION OF ABT. WILL CONTINUE TO MONITER.
[2019-09-24 21:09] VITALS: BP 133/56
--- NOTE | 2019-09-24 23:54 | NUR ---
ASSUMED CARE AT APPROX 1900 09/24. INFORMED BY PREVIOUS RN SYED THAT PT IS MOD/I IN ROOM (NOTE ALSO WRITTEN PREVIOUSLY BY SYED). ADVISED PT TO WEAR SOCKS AND/OR SHOES AT ALL TIMES WHILE GETTING UP. PT VERBALIZED UNDERSTANDING. WILL CONFIRM MOD I STATUS IN AM WITH PHYSICIAN AND DAY RN TO FOLLOW-UP. CALL LIGHT IN REACH. WILL CONTINUE TO MONITOR WITH HOURLY ROUNDING.
--- NOTE | 2019-09-25 08:41 | NUR ---
ASSUME PT CARE AT 0700. REPORTS SLEPT GOOD. VSS ON RA. BS 165. INSULIN LANTUS AND LIPRO GIVEN ORDERED. C/O NAUSEA, PAIN ON ABD. PRN ZOFRAN AND TYLENOL GIVEN PER REQUESTS. PT TOOK MORNING MEDS WITH WATER WITHOUT DIFFICULTY. CONTINUE TO BE ON IV ABT VIA RIGHT PICC LINE WITHOUT DIFFICULTY. PT IS CURRENTLY ON FULL LIQUID. WILL CONTACT WITH DR. AYALA TO UPGRADE HER DIET PER PLAN. OFFERED SUPPORTIVE CARE. ENCOURAGED PT TO VOICE HER NEEDS. DRESSING ON BUTTOCK CHANGED. WOUND BED DRY AND INTACT. PT UP WITH M.I WITH WALKER. WILL CONTINUE TO MONITOR.
[2019-09-25 10:17] VITALS: BP 146/40
--- NOTE | 2019-09-25 11:42 | NUR ---
PT HAD PERFORATED GASTRIC ULCER AND FECULENT PERITONITIS. DR. AYALA DID LAPAROSOPIC ON 09/09/19 AND STARTED HER ON FULL LIQUID FOR [address] AYALA'S OFFICE TO SEE IF PT CAN BE UPGRADE HER DIET. LLQ ABD DRAINAGE HAD 200CC SINCE THIS AM. WAITING FOR DR. AYALA TO CALL BACK AND CONTINUE TO MONITOR. OT IS WORKING WITH PT AT THIS MOMENT.
[2019-09-25 20:12] VITALS: BP 128/48
--- NOTE | 2019-09-26 01:55 | NUR ---
ASSUMED CARE OF PT FROM DAY SHIFT PT RESTING IN BED, ASSESSMENT COMPLETED, DENIES PAIN, UP TO BATHROOM , GAIT UNSTEADY AT TIME PT REFUSE TO USE YELLOW SOCKS AND GAIT BELT. PT WILL USE WALKER , PT ALERT ORIENTED X4 AND AWARE OFR FALL CONTRACT. ABD INCISIONA HEALING WITH DERMABOND ELENO DRAIN WITH CLEAR LIGHT YELLOW OUTPUT NOTED.PT HAD SOFT STOOL DURING THE NIGHT AND RESTED APPEARS TO BE RESTING WELL THROGUHOUT HOURLY ROUNDS AND INBETWEEN GOING TO BATHROOM. WILL CONINTUE WITH CURRENT PLAN OF CARE AND WILL REPORT CHANGES OR ABNORMAL FINDINGS.
[2019-09-26 07:45] VITALS: BP 139/49
--- NOTE | 2019-09-26 10:02 | NUR ---
ASSUMED CARE AT 0700. PATIENT IS ALERT AND ORIENTED X4. PATIENT REMAINS NPO FOR CT OF ABD WITH CONTRAST. PATIENT BRODERICK'S, PHARMACEUTICAL OFFICER ARE EQUAL. LUNGS ARE CLEAR. ABD IS SOFT WITH BSX4. ABD INCISION SITES DRY AND INTACT. PATIENT IS UP TO THE BATHROOM TO VOID AND HAVE BM. PICC LINE IN HIS RIGHT UPPER ARM IS WITHOUT REDNESS OR SWELLING. PATIENT REMAINS MOD/I IN ROOM WITH WALKER. FALL AND SAFETY PROTOCOLS IN PLACE. NO C/O PAIN AT THIS TIME. WILL CONTINUE WITH THERAPIES AFTER CT SCAN. WILL CONTINUE TO MONITER.
--- NOTE | 2019-09-26 11:34 | NUR ---
6315 PATIENT LEFT UNIT TO RADIOLOGY FOR C.T. OF HER ABD WITH CONTRAST. WILL CONTINUE TO MONITER WHEN SHE RETURNS
--- NOTE | 2019-09-26 11:35 | NUR ---
1045 PATIENT RETURNED FROM RADIOLOGY PER W/C. PATIENT REGULAR DIET RESUMED PER N.P. ROOM SERVICE NOTIFIED. REVIEWED MENU WITH PATIENT. WILL CONTINUE TO MONITER.
--- NOTE | 2019-09-26 12:23 | NUR ---
team meeting, recommendation. pt having ct scan of abd today. left heel bilstar, right coccyx both with tx. noise at lunch time. still having loose stools, cont of b and b. will cont with dc 09/27/2019 hh (pt, ot, nursing) and if medically cleared.
--- NOTE | 2019-09-26 16:05 | NUR ---
DISCHARGE PLANNING. ANTICIPATED DISCHARGE PLANNED FOR TOMORROW. HOME WITH HOME HEALTH RECOMMENDED. PATIENT REFERRAL FAXED TO [facility], PER REQUEST. CALL PLACED TO [facility]TA[facility] TO NOTIFY. PHIL TO REVIEW AND NOTIFY ERNST. FOLLOWING.
--- NOTE | 2019-09-26 17:28 | NUR ---
DISCHARGE PLANNING NOTE: PHIL WITH [facility] CAME TO THE UNIT, NOTED THAT REFERRAL WAS FOR HH AND NOT [facility], AND IS REACHING OUT TO THE HH LIAISONS TO ENSURE THAT THE REFERRAL GOES TO THE CORRECT SERVICE LINE.
[2019-09-26 19:00] VITALS: BP 131/63
--- NOTE | 2019-09-27 04:57 | NUR ---
Assumed pt care @191. pt a&ox4. adlib in room and will call out for assistance when needed. lap sites c/d/i. serious fluid drained from suresh drain. suresh drain intact and patent. pt c/o of minor pain which was relief with tylenol. no concerns overnight. no s/s of distress. following poc and possible d/c today per cm. will cont to monitor
[2019-09-27 07:30] VITALS: BP 134/63
[2019-09-27] MEDS ORDERED: MIRALAX17 GM PO (10:00)
[2019-09-27] MEDS ORDERED: ZOFRAN ODT4 MG DISSOLVE (10:00)
[2019-09-27] MEDS ORDERED: MELATONIN5 M1 PO (10:00)
[2019-09-27] MEDS ORDERED: PROTONIX40 M1 PO (10:00)
[2019-09-27] MEDS ORDERED: SODIUM BICARBO650 M3 PO (10:00)
[2019-09-27] MEDS ORDERED: TOPROL XL25 MG PO (10:05)
--- NOTE | 2019-09-27 11:57 | NUR ---
WOUND CARE F/U ASSESSED WOUNDS W/ CASINO CAGE SUPERVISOR EDGAR, PHOTOS TAKEN, WOUND L BUTTOCK HEALING, YELLOWISH SLOUGH PRESENT, SCANT DRAINAGE, BLISTER/DTI LEFT HEEL, HEALING, NOT OPEN, NO S/S INFECTION IN EITHER WOUND, HAS PRAFO BOOTS, ALERT AND COOPERATIVE, SEE PROCESS INTERVENTION FOR WOUND DETAILS RECOMMENDATIONS CONT W/ THERAHONEY TO BUTTOCK WOUND COVER W/ BORDER FOAM DRSG, 3X WEEK AND PRN, BORDER FOAM DRSG TO LEFT HEEL DAILY, WEAR PRAFO BOOTS WHEN IN BED, SOFT SOLE SHOES, PRESSURE RELIEF AND OFF LOADING
[2019-09-27] MEDS ORDERED: GLIMEPIRIDE4 MG PO (12:54)
[2019-09-27 13:08] VITALS: BP 134/63
[2019-09-27 13:14] VITALS: BP 134/63
[2019-09-27 13:26] VITALS: BP 134/63
[2019-09-27 13:53] VITALS: BP 134/63
--- NOTE | 2019-09-27 16:17 | H ---
[facility] [place] [address] HISTORY AND PHYSICAL Name: VLADAYSHA Room #: 501-A [facility] IN M.R.#: [id number] Admission: 09/20/19 Attend Phys: Wing Geller MD Discharge: 09/27/19 Date of : 44 Report #: [id number] THIS REPORT FOR: //name// CC: Wing [place] DATE OF SERVICE: 09/20/2019 POST ADMISSION PHYSICIAN EVALUATION HISTORY OF PRESENT ILLNESS: The patient is a 78-year-old white female originally admitted to [facility] on 09/09/2019 when she presented with severe abdominal pain, was found on CT to have a perforated gastric ulcer. She underwent diagnostic laparoscopy with Ignacio patch by General Surgery on 09/09/2019. She had an NG tube to low intermittent suction was treated with IV fluids, IV antibiotics and given a ELENO drain. She continued n.p.o. for a prolonged period of time with upper GI series showing moderate ileus. CT abdomen obtained on 09/17/2019 showed healing as expected with Ignacio patch for surgery. She was advanced to clear liquids and now to a full liquid diet. She is to continue on the full liquid diet for 2 more weeks per Surgery recommendations. She is tolerating the diet, but has become significantly debilitated and has been admitted for acute in-hospital inpatient rehabilitation. For prior medical history, allergies, habits, social history, please see the history and physical. I agree with the history and physical documentation and the assessment and plan as noted. MEDICATIONS: Please see the full MAR. REVIEW OF SYSTEMS: Has some overall fatigue, some abdominal soreness with activity. No chest pain. She is starting to have BMs as noted. PHYSICAL EXAMINATION: GENERAL: A 78-year-old female in no obvious distress. VITAL SIGNS: As noted. HEENT: Appeared to be benign. CHEST: Sounded clear to auscultation. CARDIOVASCULAR: Regular rate and rhythm. ABDOMEN: Bowel sounds positive, nontender. GENITOURINARY AND RECTAL: Deferred. Strength of the upper extremities is 4-/5. Lower extremities is 4-/5. She is needing min assist with short distance walker ambulation with transfers. ASSESSMENT: A 78-year-old white female with the following problem list: 1. Medical complexity with generalized debilitation. [address] [address] HISTORY AND PHYSICAL Name: MICA CHU ANN Room #: 501A [facility] IN .R.#: [id number] Admission: 09/20/19 Attend Phys: Wing Geller MD Discharge: 09/27/19 Date of : 44 Report #: [id number] 2. Perforated gastric ulcer, status post laparoscopic surgery with patch on 09/09/2019. 3. Peritonitis. 4. Hypertension. 5. Type 2 diabetes mellitus. 6. Hypothyroidism. 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 8. Moderate ileus and constipation, which have resolved. PLAN: The patient is admitted for acute in-hospital inpatient rehabilitation. From a postadmission physician evaluation perspective, there are no relevant changes since the preadmission screening. Please see the above review of prior and current medical and functional conditions and comorbidities. Please see the patient's previous and current functional status. As far as risk of complications, the patient has multiple medical comorbidities as noted above. Initial plan of care involves the interdisciplinary acute inpatient rehabilitation program. Prognosis is reasonably good with estimated length of stay probably at least 10 days to 2 weeks. Potential barriers would include her multiple medical comorbidities and decreased functional status. The patient meets diagnostic criteria for an acute in-hospital inpatient rehabilitation stay. She meets medical necessity criteria and we will have the nurse consultant physicians continue to follow. She does have the tolerance for therapies and has appropriate discharge goals back to the home setting. <ELECTRONICALLY SIGNED> By: Wing Geller MD 09/27/19 1617 [id number] [id number] Wing Geller MD /[facility] [place]
--- NOTE | 2019-09-27 16:17 | PLAN ---
[facility] [place] [address] REHAB UNIT PLAN OF CARE Name: CANDIS CHUH ANN Room #: 501-A [facility] IN M.R.#: [id number] Admission: 09/20/19 Attend Phys: Wing Geller MD Discharge: 09/27/19 Date of : 44 Report #: [id number] THIS REPORT FOR: //name// CC: Wing [place] DATE OF SERVICE: 09/22/2019 PROGRESS NOTE/OVERALL PLAN OF CARE SUBJECTIVE: The patient is seen back today in followup. She is in no distress. Temperature 98, pulse 78, respirations 18, blood pressure 140/65. She has the abdominal drain in place. She has been working in therapies. No calf swelling. Transfers are standby assistance. Gait, standby assistance 60-100 feet with a front-wheeled walker. Lower body dressing is mod assist. ASSESSMENT: 1. Medical complexity with generalized debilitation. 2. Perforated gastric ulcer, status post diagnostic laparoscopy with patch on 09/09/2019. 3. Peritonitis. 4. Hypertension. 5. Diabetes mellitus type 2. 6. Hypothyroidism. 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 8. Anemia. 9. Moderate ileus and constipation, resolved. PLAN: The patient is continuing on the full liquids. From an overall plan of care perspective, this is based on the preadmission screen, post-admission physician evaluation and information garnered from therapy assessments. 1. Estimated length of stay is probably 7-10 days, pending progress. It may be up to 14 days. 2. Medical prognosis is reasonably good. 3. Anticipated interventions include the interdisciplinary acute inpatient rehabilitation program. 4. Anticipated functional outcomes would be for the patient to become modified independent with transfers, mobility, ADLs, so that she can hopefully return back to her prior living situation. 5. Discharge destination would be back to her home setting where she lives alone. 6. Expected therapy by discipline includes PT, OT 1-1/2 hours per day each five days a week throughout the duration of the acute inpatient rehabilitation stay. [address] [address] REHAB UNIT PLAN OF CARE Name: MICA CHU Room #: 501-A [facility] IN .R.#: [id number] Admission: 09/20/19 Attend Phys: Wing Geller MD Discharge: 09/27/19 Date of : 44 Report #: [id number] ADDENDUM: The patient is actually being put on the low endurance program after discussion with physical therapy, <ELECTRONICALLY SIGNED> By: Wing Geller MD 09/27/19 1617 [id number] [id number] Wing Geller MD /[facility]
[2019-09-28 08:41] LABS: SOURCE JP DRAIN
== END 2019-09-27 14:00 | disposition home health service (06) | DRG 947 ==
LOC: ENTRNSPT 09-27 14:01 → EDTRNSPTSTS 09-27 14:21
PROVIDERS: Internal Medicine; Nurse Practitioner; Surgery; ADMIT Physical Medicine & Rehabilitation
DX: R53.81 Other malaise (principal); K25.5 Chronic or unspecified gastric ulcer with perforation; K65.9 Peritonitis, unspecified; E43 Unspecified severe protein-calorie malnutrition; N18.4 Chronic kidney disease, stage 4 (severe); K56.7 Ileus, unspecified; J90 Pleural effusion, not elsewhere classified; Z68.41 Body mass index [BMI] 40.0-44.9, adult; M17.0 Bilateral primary osteoarthritis of knee; E03.9 Hypothyroidism, unspecified; E11.22 Type 2 diabetes mellitus with diabetic chronic kidney disease; I12.9 Hypertensive chronic kidney disease with stage 1 through stage 4 chronic kidney disease, or unspecified chronic kidney disease; D64.9 Anemia, unspecified; Z60.2 Problems related to living alone; K59.00 Constipation, unspecified; Z88.2 Allergy status to sulfonamides; Z98.42 Cataract extraction status, left eye; Z98.41 Cataract extraction status, right eye; Z88.0 Allergy status to penicillin
CPT/HCPCS: 10112

== ENCOUNTER 2019-10-18 10:39 | Inpatient (IN) | payer OTHER, MEDICARE ==
[~2019-10-18] VITALS: Ht 160 cm; Wt 88.0 kg
[2019-10-18] VITALS (19 sets, daily range): BP systolic 138–170; BP diastolic 55–80
--- NOTE | ~2019-10-18 | HC ---
[facility] [place] [address] CONSULTATION Name: MICA CHU Room #: 242-P ADM IN M.R.#: [id number] Admission: 10/18/19 Attend Phys: Nikunj Pierre MD Discharge: Date of : 42 Report #: [id number] THIS REPORT FOR: //name// CC: Rafael Mills MD DATE OF SERVICE: 10/18/2019 REASON FOR CONSULTATION: Acute kidney injury and metabolic acidosis. HISTORY OF PRESENT ILLNESS: This is a 78-year-old female who had just been in the hospital recently. She came in on 09/16/2019 and was found to have a perforated viscus. She ended up being taken to the operating room where she was found to have a perforated gastric ulcer and pneumoperitoneum. She had a laparoscopic modified Ignacio patch for the perforated gastric ulcer. Recovery from that occurred over the subsequent couple of weeks. She spent some time on the rehab floor and eventually was discharged to home on 09/27/2019. That is exactly 3 weeks ago. Her home recovery was also slow. She was starting a little bit better. She had good days where she was more active and felt better, over the past week that has again worsened. More recently, she became acutely worse yesterday. This included diarrhea, a very dramatic increase of sharp epigastric abdominal pain, which spread throughout the abdomen. She began feeling very weak. She was brought back to the Emergency Room. A CT scan has shown a recurrent perforation with free air in the abdomen. She has leukocytosis in a very tense abdomen as will be described below. We are asked to see her because of some of her renal parameters. She presents today with a BUN of 31 and a creatinine of 3.5. I would note that she ran a creatinine between 1.6 and 2.0 during her prior hospitalization. It stayed in that range the entire time and did not get acutely worse. In talking to her, she states she has never seen a informatica mdm developer previously. Her primary care physician is Sandro Mills who has followed her diabetes and hypertension. She is chronically on an angiotensin receptor lisa. She is also chronically on some metformin for her diabetes management. She is unaware what her blood pressure has been running at home. She has not been frankly hypotensive since she arrived here. She states she has had decreased intake over the past few days, she has also noticed decreased urine output, she has had increasing amounts of diarrhea and states that she feels dehydrated. I reviewed her CT scan, which was done in the Emergency Room. Kidneys are of fairly reasonable size. There is no evidence of obstruction and revealed nothing anatomically going on. Since arrival in the Emergency Room, she has gotten 2 liters of IV fluids. That [facility] [address] [place] [address] CONSULTATION Name: MICA CHU Room #: 242-P ADM IN M.R.#: [id number] Admission: 10/18/19 Attend Phys: Nikunj Pierre MD Discharge: Date of : 42 Report #: [id number] has been over the past about 7-8 hours. She has a Raymond catheter and that is dry at the moment. PAST MEDICAL HISTORY: Longstanding diabetes and hypertension. Again, that is all cared for by Dr. Mills. She is chronically on an angiotensin receptor lisa. She is unaware of proteinuria. She had elevated creatinines noted above. I would note that even when she came in the first time with perforation, she ran a moderately high blood pressure in the 170 systolic range. She has some hypothyroidism and is on replacement for that, has had some degenerative arthritis of her knees. Previous cataract surgery. MEDICATIONS: Pantoprazole 40 mg b.i.d., levothyroxine 0.2 mg daily, glimepiride 4 mg daily, metformin 1000 mg daily, metoprolol 25 mg daily and she says she is taking replacement for some losartan, but cannot tell me what it is. ALLERGIES: LISTED TO PENICILLIN AND SULFA. FAMILY HISTORY: Negative for any renal disease. SOCIAL HISTORY: The patient is a , lives in [place], [place]. She is retired. She is accompanied by her son and daughter at this time. REVIEW OF SYSTEMS: Mostly as per the history of present illness. Was not having any urinary symptoms, although urine output has been diminished. No hematuria. She has increase in abdominal pain as noted above. She has had decreased intake orally. She has had increased recent diarrhea. She has been on some probiotics, concerned that this was infectious related, and feels weak and tired. No acute dyspnea, cough, or chest pain. Unaware of fevers, chills or sweats. She has lost 30 pounds since before her last admission. PHYSICAL EXAMINATION: GENERAL: Pleasant 78-year-old acutely ill-appearing female. VITAL SIGNS: Blood pressure 153/69, heart rate 102, respiratory rate 28, oxygen saturation 98%, temperature 97.5 degrees Fahrenheit. HEENT: Shows pupils are equal and reactive. Sclerae nonicteric. Oral mucosa is parched. NECK: Supple without adenopathy, thyromegaly, JVD or bruit. CHEST: Shallow but otherwise clear bilaterally. HEART: Has a regular tachycardia. ABDOMEN: Firm, tense in the mid section with guarding and rebound and absent bowel sounds. EXTREMITIES: Show decreased skin turgor, upper and lower extremities, no peripheral edema. She has 1+ peripheral pulses. LABORATORY DATA: Sodium 125, potassium 5.5, chloride 91, bicarbonate 17, BUN 31, creatinine 3.5, glucose 520 on admission, down to 365. AST 12, ALT 9, total [facility] [address] [place] [address] CONSULTATION Name: MICA CHU ANN Room #: 242-P ADM IN M.R.#: [id number] Admission: 10/18/19 Attend Phys: Nikunj Pierre MD Discharge: Date of : 42 Report #: [id number] bilirubin 0.4, calcium 7.7, phosphorus 3.7, magnesium 1.0, total protein 7.4, albumin 1.7, lactate 3.7, down from 5.2. White count 15.8, hemoglobin 10.6, hematocrit 34.4, platelets 462,000. Differential on the white count, 91 neutrophils, 3 lymphs, 6 monos. Urinalysis, specific gravity of 1.020, pH of 5.5, 1+ protein, 2+ blood, greater than 10 epithelial cells, 0-5 white cells, 0-2 red cells, moderate amorphous urate crystals. ASSESSMENT: 1. Repeat perforation of a viscus. She has free air again. She has an acute abdomen. In a very short while, she is heading back to the operating room for repeat evaluation and/or treatment. She had a perforation 5 weeks ago of a pyloric channel or prepyloric gastric ulcer. She had recovered moderately well from that, but now has a repeat problem. We will see which is found out surgically. 2. Acute kidney injury. She has not had an abrupt rise in her creatinine. Blood pressure is not low, but she is very dry on exam and it is remarkable in looking back that she had no hypotension at the time of a previous acute abdomen, similar to now. She needs more IV fluids. She is oligoanuric. She has the associated metabolic acidosis and hyperkalemia. 3. Metabolic acidosis with an increased anion gap. This is partly due to lactate with her sepsis. It is partly due to her acute kidney injury. I am certain there is also a component of lactic acidosis related to her metformin administration as her creatinine level has risen. With that combination, we will get her back on more IV fluids, but also add some bicarbonate. 4. Longstanding diabetes mellitus with an acute rise of glucose over 500. She will need some additional insulin for that. 5. Longstanding hypertension. Again, it is remarkable that her blood pressure is maintained is high as throughout this acute event. 6. Longstanding chronic kidney disease based on creatinine level 1.7-2.0. I presume this is on the basis of diabetes and hypertension as she has had both of those for some period of time. Anatomically, I see no cause. 7. Hypothyroidism, on replacement. PLAN: 1. We will await findings from the operating room where she was back for surgical repair. 2. I will give her a bolus of an additional 1 liter of normal saline. She will then need increased rates of IV fluids going forward. 3. To help with her acidosis, which is multifactorial as noted above, I have switched her to bicarbonate containing IV fluids when she gets back from the operating room. 4. Close follow up labs. 5. Make sure we support her hemodynamically. 6. Keep the Raymond in place. [facility] [address] [place] [address] CONSULTATION Name: MICA CHU Room #: 242-P [facility] IN .R.#: [id number] Admission: 10/18/19 Attend Phys: Nikunj Pierre MD Discharge: Date of : 42 Report #: [id number] 7. We will follow along very closely in the care of this critically ill patient. By: [id number] Erik Almeida MD /yaneth
[~2019-10-18 10:39] MED LIST changes: +GLIMEPIRIDE4 MG PO; +MELATONIN5 M1 PO; +ONDANSETRON HCL4 M1 IV PUSH; +TRAMADOL 50 MG50 MG PO; +TYLENOL ARTHRI650 MG PO; +ZOFRAN ODT4 MG DISSOLVE
[2019-10-18] MEDS ORDERED: GLIMEPIRIDE4 MG PO (10:47)
[2019-10-18 11:43] LABS: ABSOLUTE NEUTROPHILS 14.3 thou/uL (1.4-8.2); BASOPHILS 0.2 % (0.0-2.0); HEMATOCRIT 34.4 % (37.0-47.0); HEMOGLOBIN 10.6 gm/dL (12.0-15.0); LYMPHOCYTES 3.5 % (24.0-44.0); MCH 25.5 pg (26.0-34.0); MCHC 30.9 g/dL (28.0-37.0); MCV 82.3 fL (80.0-100.0); MONOCYTES 5.8 % (1.0-8.0); PLATELET COUNT 462 thou/uL (150-400); POLYS 90.5 % (36.0-66.0); RBC 4.17 mil/uL (4.20-5.00); RDW 15.1 % (10.5-14.5); WBC 15.8 thou/uL (4.0-11.0)
[2019-10-18 12:08] LABS: ANION GAP 17 mmol/L (7-16); BUN 31 mg/dL (7-18); CALCIUM 9.2 mg/dL (8.5-10.1); CHLORIDE 91 mmol/L (98-107); CO2 17 mmol/L (21-32); CREATININE 3.5 mg/dL (0.6-1.0); LIPASE 78 U/L (73-393); POTASSIUM 5.5 mmol/L (3.5-5.1); SGOT 12 U/L (15-37); SGPT 9 U/L (30-65); SODIUM 125 mmol/L (136-145); TOTAL BILIRUBIN 0.4 mg/dL (<0.1-1.0); TOTAL PROTEIN 7.4 g/dL (6.4-8.2); TROPONIN-I <0.06 ng/mL (<0.06)
[2019-10-18 12:10] LABS: GLUCOSE 520 mg/dL (74-106)
[2019-10-18 15:12] LABS: URINE BILIRUBIN NEGATIVE (Negative); URINE BLOOD TRACE (Negative); URINE CLARITY SL CLOUDY; URINE COLOR YELLOW; URINE GLUCOSE-RANDOM* 2+ (Negative); URINE KETONES NEGATIVE (Negative); URINE LEUKOCYTES-REFLEX NEGATIVE (Negative); URINE NITRITE-REFLEX NEGATIVE (Negative); URINE PROTEIN (DIPSTICK) 1+ (Negative); URINE UROBILINOGEN 0.2 E.U./dl (0.2-1.0)
[2019-10-18 15:21] LABS: AMORPHOUS URATES Moderate /LPF (None Seen); BACTERIA-REFLEX 1-9 Few /HPF (None Seen); CASTS None Seen /LPF (None Seen); SQUAMOUS >10 Many /LPF (0-3); URINE RBC 0-2 Rare /HPF (0-2); URINE WBC-REFLEX 0-5 Rare /HPF (0-5)
--- NOTE | 2019-10-18 15:55 | NUR ---
PATIENT ADMITTED TO ICU ROOM 242 FROM ED VIA CART WITH NS INFUSING. PLACED ON HERBICIDE SERVICE SALES REPRESENTATIVE AND ASSESSMENT DONE.
[2019-10-18 16:06] LABS: ALBUMIN 1.7 g/dL (3.4-5.0); CALCIUM 8.2 mg/dL (8.5-10.1); CREATININE 3.3 mg/dL (0.6-1.0); PHOSPHORUS 3.6 mg/dL (2.5-4.9); POTASSIUM 5.3 mmol/L (3.5-5.1)
[2019-10-18 16:12] LABS: HEMATOCRIT 29.3 % (37.0-47.0); HEMOGLOBIN 9.1 gm/dL (12.0-15.0)
[2019-10-18 16:47] LABS: ABSOLUTE NEUTROPHILS 12.8 thou/uL (1.4-8.2); BASOPHILS 0.1 % (0.0-2.0); HEMATOCRIT 30.1 % (37.0-47.0); HEMOGLOBIN 9.2 gm/dL (12.0-15.0); LYMPHOCYTES 5.6 % (24.0-44.0); MCH 24.9 pg (26.0-34.0); MCHC 30.6 g/dL (28.0-37.0); MCV 81.7 fL (80.0-100.0); MONOCYTES 6.7 % (1.0-8.0); PLATELET COUNT 363 thou/uL (150-400); POLYS 87.6 % (36.0-66.0); RBC 3.69 mil/uL (4.20-5.00); RDW 14.8 % (10.5-14.5); WBC 14.6 thou/uL (4.0-11.0)
[2019-10-18 17:04] LABS: ALBUMIN 1.7 g/dL (3.4-5.0); CALCIUM 7.7 mg/dL (8.5-10.1); CREATININE 3.4 mg/dL (0.6-1.0); PHOSPHORUS 3.7 mg/dL (2.5-4.9); POTASSIUM 5.4 mmol/L (3.5-5.1)
--- NOTE | 2019-10-18 19:14 | NUR ---
PATIENT TO OR PER BED WITH VANCOMYCIN, NS BOLUS, INSULIN AND PROTONIX INFUSING. CENTRAL LINE PLACED BY IV THERAPY WITHOUT INCIDENT AND CHEST XRAY DONE, SHORT RUN OF VTACH WITH INSERTION NOTED. LINE PULLED BACK AND REDRESSED BY IV THERAPY PRIOR TO LEAVING FOR THE OR. FAMILY MEMBERS IN TO SEE PATIENT AND UPDATED TO STATUS AND SPOKE WITH DR MCKEON.
--- NOTE | 2019-10-18 19:17 | NUR ---
CONSULTED TO PLACE A CENTRAL LINE FOR A PATIENT NEEDING ACCESS FOR SURGERY. ORDER AND CONSENT NOTED. THE PROCEDURE WELL BENIFITS AND RISKS WERE DISCUSSED AND THE PATIENT VERBALIZED UNDERSTANDING. THE RIGHT JUGULAR WAS WIDLEY PATENT. A #6F TRIPLE LUMEN POWER INJECTABLE CENTRAL LINE WAS PLACED AFTER A BEDSIDE TIMEOUT WAS COMPLETED. THE LINE WAS 25CM AND ADVANCED TO 7CM EXTERNAL. A STAT CHEST XRAY RECOMMENDED LINE BE WITHDRAWN 3CM. LINE WITHDREW REQUESTED. LINE RELEASED FOR USE
--- NOTE | 2019-10-18 22:30 | NUR ---
Pt rec'd from [facility] s/p Exploratory Lap, placement of NG tube, placement of J tube, ELENO drain x 2 placement. Pt awake upon arrival to ICU. Denies pain. VSS. Normothermic. SR per monitor. O2 10L facemask. Lungs clear. MLAI with huma. ELENO drain x 2 RUQ. J-tube clamped. NG left nare @53cm connected to LIS. Raymond catheter with scant uop. Pt to recover in ICU. Update given per Dr. Pappas. BS 162. Insulin gtt at 2 u/hr. IVF changed to D5W with 150meq NaHCO3 at 150ml/hr per Dr. Almeida order. Antibiotics as previously ordered.
--- NOTE | 2019-10-18 23:30 | NUR ---
Christianne VICKERS called re: DKA protocol orders and new orders from manager gas, surgeon etc. Will obtain stat labs post op. Continue IVF per Dr. Almeida and continue insulin gtt at this time.
[2019-10-19] VITALS (15 sets, daily range): BP systolic 122–158; BP diastolic 58–82
[2019-10-19 00:12] LABS: HEMOGLOBIN 9.1 gm/dL (12.0-15.0); MCH 25.6 pg (26.0-34.0); MCHC 31.4 g/dL (28.0-37.0); MCV 81.5 fL (80.0-100.0); RBC 3.56 mil/uL (4.20-5.00); RDW 15.4 % (10.5-14.5); WBC 12.3 thou/uL (4.0-11.0)
[2019-10-19 00:30] LABS: CALCIUM 7.4 mg/dL (8.5-10.1)
[2019-10-19 00:34] LABS: ALBUMIN 1.5 g/dL (3.4-5.0); MAGNESIUM 1.6 mg/dL (1.8-2.4); POTASSIUM 4.4 mmol/L (3.5-5.1); TOTAL BILIRUBIN 0.2 mg/dL (<0.1-1.0); TOTAL PROTEIN 5.8 g/dL (6.4-8.2)
[2019-10-19 05:28] LABS: HEMATOCRIT 28.9 % (37.0-47.0)
[2019-10-19 05:53] LABS: ALBUMIN 1.3 g/dL (3.4-5.0); CALCIUM 7.3 mg/dL (8.5-10.1); PHOSPHORUS 2.7 mg/dL (2.5-4.9)
--- NOTE | 2019-10-19 07:05 | NUR ---
Shift summary: Neuro intact. Pain controlled. VSS. Afebrile. Room air. Lungs clear. BS absent. NG to LIS with 100ml dark green drng since return from OR. ELENO x 2 RUQ with 25ml serosanguinous drng each. J tube LUQ clamped. Pt denies nausea. MLAI intact with huma. Kept NPO. Frequent oral care given; mouth extremely dry. Remains oliguric. UOP 100ml since OR. Insulin gtt as ordered. Anion gap closed. Electrolyes improved. Serum CO2 up to 23. Lactic < 2.0. Plan of care reviewed and updated as able. Dr. Tim consult called. Patient not aware of findings in surgery. Report to oncoming shift.
--- NOTE | 2019-10-19 12:00 | NUR ---
DR REDMAN AND DR REYES AWARE OF LOW URINE OUTPUT. FLUIDS INFUSING PER RENAL. PAIN REGIMENT EASES PAIN TO A 5/10. FAMILY MEMBERS IN AND UPDATED TO PATIENT STATUS, REASSURANCE GIVEN.
[2019-10-19 13:11] LABS: HEMATOCRIT 28.9 % (37.0-47.0); HEMOGLOBIN 9.2 gm/dL (12.0-15.0)
[2019-10-19 13:21] LABS: ALBUMIN 1.3 g/dL (3.4-5.0); CALCIUM 7.4 mg/dL (8.5-10.1); CREATININE 3.1 mg/dL (0.6-1.0); PHOSPHORUS 2.7 mg/dL (2.5-4.9); POTASSIUM 4.1 mmol/L (3.5-5.1)
--- NOTE | 2019-10-19 18:30 | NUR ---
DR MCKEON IN TO DISCUSS SURGICAL FINDING WITH PATIENT AND FAMILY AT 1715 TODAY. NGT REMOVED PER PATIENT REQUEST AND GIVEN ICE CHIPS. FENTANYL DRIP STARTED AND INCREASED PER ORDER TO 50 MCG/HR RASS SCORE 0 TO -1. INSULIN DRIP INFUSING TO KEEP BLOOD SUGAR WITHIN RANGE. URINE OUTPUT REMAINS LOW WITH 150 ML AFTER LASIX GIVEN. 1800 LAB PENDING.
[2019-10-19 19:40] LABS: HEMATOCRIT 28.5 % (37.0-47.0); HEMOGLOBIN 8.9 gm/dL (12.0-15.0)
[2019-10-19 19:45] LABS: ALBUMIN 1.3 g/dL (3.4-5.0); CALCIUM 7.2 mg/dL (8.5-10.1); CREATININE 3.2 mg/dL (0.6-1.0); PHOSPHORUS 2.5 mg/dL (2.5-4.9); POTASSIUM 4.1 mmol/L (3.5-5.1)
[2019-10-20] VITALS (13 sets, daily range): BP systolic 124–152; BP diastolic 43–75
[2019-10-20 03:52] LABS: ABSOLUTE NEUTROPHILS 7.5 thou/uL (1.4-8.2); BASOPHILS 0.3 % (0.0-2.0); EOSINOPHILS 0.2 % (0.0-3.0); HEMATOCRIT 24.9 % (37.0-47.0); LYMPHOCYTES 6.7 % (24.0-44.0); MCH 25.7 pg (26.0-34.0); MCV 80.1 fL (80.0-100.0); MONOCYTES 7.2 % (1.0-8.0); POLYS 85.6 % (36.0-66.0); RBC 3.11 mil/uL (4.20-5.00); RDW 14.8 % (10.5-14.5); WBC 8.7 thou/uL (4.0-11.0)
[2019-10-20 04:26] LABS: ALBUMIN 1.1 g/dL (3.4-5.0); CALCIUM 6.8 mg/dL (8.5-10.1); CREATININE 3.1 mg/dL (0.6-1.0); PHOSPHORUS 2.7 mg/dL (2.5-4.9); POTASSIUM 3.6 mmol/L (3.5-5.1); TOTAL BILIRUBIN 0.2 mg/dL (<0.1-1.0)
[2019-10-20 05:07] LABS: PLATELET COUNT 232 thou/uL (150-400)
--- NOTE | 2019-10-20 06:05 | NUR ---
ASSUMED CARE OF PATIENT AT 1900. VSS, AFEBRILE. FENTYNAL GTT INFUSING TO CONTROL PAIN. RESTING WELL THROUGH THE NIGHT. CALLS OUT APPROPRIATELY. 2 ELENO DRAINS REMAIN. INSULIN GTT STILL ALSO INFUSING.
--- NOTE | 2019-10-20 09:36 | NUR ---
If starting jtube feeds over weekend, recommend vital high protein to start 20ml/hr with goal of 50ml/hr
--- NOTE | 2019-10-20 11:01 | NUR ---
INITIAL ASSESSMENT: Pt evaluated for d/c planning needs. Reviewed chart and spoke with nurse, pt and pt's granddaughter. Pt is alert and oriented. Pt was hospitalized at [facility] September 08 and returned home after inpatient rehab stay on 09/26/19. Pt had [facility] on d/c. Their services stopped on 10/16/19. Pt lives alone in house and was independent with ADL's prior to previous admission. Pt has walker at home. Will remain available to assist as needed.
[2019-10-20 13:26] LABS: HEMATOCRIT 25.8 % (37.0-47.0); HEMOGLOBIN 8.2 gm/dL (12.0-15.0)
[2019-10-20 13:44] LABS: ALBUMIN 1.2 g/dL (3.4-5.0); CALCIUM 7.3 mg/dL (8.5-10.1); CREATININE 3.1 mg/dL (0.6-1.0); PHOSPHORUS 3.2 mg/dL (2.5-4.9); POTASSIUM 3.9 mmol/L (3.5-5.1)
--- NOTE | 2019-10-21 04:07 | NUR ---
ASSUMED CARE OF PATIENT AT APPROX 1945. ASSESSMENT CHARTED. MEDICATIONS GIVEN PER MAR. IV FLUIDS INFUSING AT 25 ML/HR ON R IJ MIDLINE W ABX PIGGYBACK. PATIENT IS A&OX4 BUT SLEEPY. PATIENT WAS RECIEVING FENTANYL IVPB IN ICU. PATIENT DENIES PAIN. VSS, O2 SAT IS 99% ON 2L. PATIENT HAS BEEN REFUSING REPSOTIONING D/T PAIN. PATIENT HAS 4 SURGICAL INCISIONS; 2 ELENO DRAIN SITES, A POST LAPRASCOPIC INCISION AND A NEW J-TUBE SITE, ALL C/D/I. PATIENT HAS A MCMAHON AND IS OLIGURIC. PATIENT HAD SOME ICED WATER TODAY AND TOLEREATED WELL MOSTLY WITH BELCHING. SOME BILE CAME UP WITH IT; LESS THAN 5CC'S. PATIENT WAS CHECKED ON AT 0400 AND HAD BLOOD DRAWN. DRESSING WAS APPLIED ON J-TUBE SITE. PATIENT VOICED PAIN WHEN TOUCHED AROUND SURGICAL SITES 10. PRN PAIN MED ADMINISTERED. PATIENT REMAINS ON BEDREST AND VOICES NO OTHER NEEDS. PATIENT STILL REFLECTS A SAD/DEPRESSED DEMEANOR. FALL PRECAUTIONS IN PLACE. WILL CONTINUE TO MONITOR AND FOLLOW POC.
--- NOTE | 2019-10-21 05:04 | NUR ---
THIS NURSE AGREES WITH ASSESSMENT AND NOTE BY ELECTRONIC SERVICE TECHNICIAN ON THIS PATIENT.
[2019-10-21 05:22] LABS: ALBUMIN 1.2 g/dL (3.4-5.0); CALCIUM 7.3 mg/dL (8.5-10.1); CREATININE 3.3 mg/dL (0.6-1.0); PHOSPHORUS 4.6 mg/dL (2.5-4.9); POTASSIUM 4.2 mmol/L (3.5-5.1)
[2019-10-21 07:25] VITALS: BP 124/75
[2019-10-21 13:40] LABS: HEMATOCRIT 24.8 % (37.0-47.0); HEMOGLOBIN 7.8 gm/dL (12.0-15.0)
[2019-10-21 13:54] LABS: ALBUMIN 1.2 g/dL (3.4-5.0); CALCIUM 7.5 mg/dL (8.5-10.1); CREATININE 3.5 mg/dL (0.6-1.0); PHOSPHORUS 5.5 mg/dL (2.5-4.9); POTASSIUM 4.3 mmol/L (3.5-5.1)
[2019-10-21 16:55] VITALS: BP 124/58
--- NOTE | 2019-10-21 19:38 | NUR ---
ASSUMED CARE OF PATIENT AT O715, PATIENT ALERT AND ORIENTED X 4. PATIENT ON BEDREST. C/O PAIN WITH ABDOMEN, RECEIVED OXYCODONE PO LIQ. X 1 THIS SHIFT. PATIENT C/O NAUSEA THIS AM, PROTONIX IV GIVEN. THIS RN NOTIFIED DR VARELA OF NEEDING ZOFRAN, ORDERED RECEIVED. PATIENT HAS RIGHT IJ WITH NS AT 25CC/HR. PATIENT HAS RECEIVED MULTIPLE IV ANTIBIOTICS THIS SHIFT. PEG TUBE TO LEFT UPPER ABDOMEN. 2 ELENO DRAINS NUMBER 1-7CC AND NUMBER 2-15CC. PATIENT HAS MCMAHON CATHER INPLACE, 100CC OUT THIS SHIFT. RIGHT ARM EDEMATOUS AND NI. LEGS SMALL AMT OF EDEMA. MIDLINE INCISION. POSSIBLE HOSPICE, AFTER THE FAMILY HAS MEETING. PATIENT REFUSED BATH AND MOST OF THE TURNS THIS SHIFT. WILL CONTINUE TO MONITOR.
[2019-10-21 19:39] VITALS: BP 130/64
--- NOTE | 2019-10-22 04:35 | NUR ---
PATIENT ALERT AND ORIENTED X4. HOWEVER, APPEARS VERY TIRED AND WEAK. REFUSING ALL TURNS, HOWEVER, DID LET THIS NURSE ELEVATE HER ARMS AND FEET A LITTLE MORE. IVF INFUSING W/O COMPLICATION WELL IVPB'S. BS MONITORED PER ORDER. ML INCISION D/I. MCMAHON TO D/D. 02NC 1L - NO SOA NOTED. PEG TUBE NOT IN USE. EDEMA REMAINS IN RIGHT ARM AND LOWER EXTREMETIES. SCD'S OPERATING. TOLERATING ICE CHIPS AND SPRITE. MEDICATED ONCE FOR PAIN TO ABDOMEN WITH GOOD RESULTS. VANCO TROUGH 18 AND MEDICATION GIVEN PER PHARMACY. WILL MONITOR.
[2019-10-22 04:45] LABS: HEMOGLOBIN 7.3 gm/dL (12.0-15.0)
[2019-10-22 05:14] LABS: ALBUMIN 1.2 g/dL (3.4-5.0); CALCIUM 7.4 mg/dL (8.5-10.1); CREATININE 3.5 mg/dL (0.6-1.0); PHOSPHORUS 5.1 mg/dL (2.5-4.9); POTASSIUM 4.3 mmol/L (3.5-5.1)
--- NOTE | 2019-10-22 06:20 | NUR ---
THIS AM DR. MCKEON ([place]) GAVE AN ORDER TO THIS NURSE FOR AN ULTRA SOUND OF PATIENTS RIGHT ARM DUE TO EDEMA. THIS WAS ORDERED.
[2019-10-22 08:00] VITALS: BP 144/64
--- NOTE | 2019-10-22 10:31 | NUR ---
VASCULAR ACCESS DISCUSSED WITH DR VARELA,PARTIAL THROMBUS RIJ. DR MCKEON ALSO AWARE. STARTING ON LOVENOX, WILL CONTINUE TO USE RIJ, +BR NOTED. PT HAS EDEMA RIGHT ARM
--- NOTE | 2019-10-22 16:12 | NUR ---
ASSUMED CARE OF THE PATIENT AT 0715, PATIENT ALERT AND ORIENTED X 4. BEDREST AT THIS TIME. PATIENT HAS REFUSED TURNS BUT JUST GAVE A SPONGE BATH AND CHANGED ALL LINEN. PATIENT HAS SOME BRUSING TO LEFT BUTTOCK. PATIENT HAD US OF RIGHT ARM THIS AM, MULTIPLE BLOOD CLOTS FOUND AT ANTERIOR RIGHT IJ INSERTION, SUBCLAVIAN, AXILLA AND UPPER ARM. DR MCKEON NOTIFIED, RECEIVED ORDER FOR LOVENOX 1MG/KG, PHARMACIST ORDERED LOVENOX 80MG DAILY. PATIENT HAD REFUSED LOVENOX, BUT TOOK AT ABOUT 1600, DR MCKEON ALSO ORDERED 1 UNIT OF BLOOD FOR HEMG. 7.3, PATIENT HAS NOT AGREED TO RECEIVE THE BLOOD, THIS RN NOTIFIED DR MCKEON OF REFUSAL OF BLOOD, NO NEW ORDERS RECEIVED. PATIENT HAS RIGHT IJ WITH NS AT 25CC/HR. MCMAHON IN PLACE, WITH SMALL AMOUNT OF URINE NOTED. FAMILY HAS BEEN AT THE BEDSIDE. WILL CONTINUE TO MONITOR.
[2019-10-22 16:26] VITALS: BP 140/61
[2019-10-22 22:00] VITALS: BP 147/76
--- NOTE | 2019-10-23 04:45 | NUR ---
ASSUMED CARE OF PATIENT AT APPROX. 2044. ASSESSMENT CHARTED. MEDICATIONS GIVEN PER NOV. PATIENT IS A&OX4 BUT SAD. VSS, O2 SATS AT 97% ON 1L. PATIENT IS ON BEDREST; OFTEN REFUSING OR LIMITING HER TURNS. PATIENT SHOWS NO TROUBLE BREATHING THIS SHIFT. PATIENT HAS POOR APPETITE BUT DRINKS AND TOLERATES WATER AND OTHER BEVERAGES. ELENO DRAINS AND INCISION ARE C/D/I. PEG TUBE ALSO C/D/I. PATIENT IS SLOW TO RESPOND AND REFERRED TO HERSELF "A PAIN IN THE ASS". PATIENT WAS REASSURED THAT WE ARE NOT INCOVENIENCED BY HER IN ANY WAY. PATIENT IS RECIVING PRN PAIN MEDICINE Q4 HOURS BECAUSE OF PAIN IN HER ABDOMEN. PATIENT VOICED NO OTHER CONCERNS. PLAN IS FOR PHYSICIAN TO VISIT W PATIENT IN TODAY AM 10/23/19 TO DISCUSS OPTIONS FOR HER TX. IJ MIDLINE IS INTACT W GOOD BLOOD RETURN AND INFUSING FLUIDS AND ABX WITH NO ISSUE. FALL PRECAUTIONS IN PLACE. PATIENT BEING CHECKED ON OFTEN. WILL CONTINUE TO MONITOR AND FOLLOW POC
[2019-10-23 04:55] LABS: ALBUMIN 1.3 g/dL (3.4-5.0); CALCIUM 8.1 mg/dL (8.5-10.1); CREATININE 3.4 mg/dL (0.6-1.0); PHOSPHORUS 5.2 mg/dL (2.5-4.9); POTASSIUM 4.3 mmol/L (3.5-5.1)
--- NOTE | 2019-10-23 05:27 | NUR ---
THIS NURSE AGREES WITH ASSESSMENT AND NOTES BY GENERAL OFFICE WORKER ON THIS PATIENT.
[2019-10-23 07:25] VITALS: BP 148/74
--- NOTE | 2019-10-23 08:09 | HC ---
[facility] [place] [address] CONSULTATION Name: VLADAYSHA Room #: 407-P ADM IN M.R.#: [id number] Admission: 10/18/19 Attend Phys: Nikunj Pierre MD Discharge: Date of : 42 Report #: [id number] THIS REPORT FOR: cc: Sandro Mills MD, Steven E. MD McKittrick, Richard James MD ~ THIS REPORT FOR: //name// CC: Rafael Almeida MD REFERRING PHYSICIAN: Rafael Bhagat MD. REASON FOR REFERRAL: Gastric mass with omental implant. HISTORY OF PRESENT ILLNESS: The patient is a 78-year-old female from the [facility], who was in the hospital back in September for abdominal pain, came back in most recently with abdominal pain, and was having perforation. At the time of surgery, she was found to have a gastric mass with perforation with omental implants. Note that pathology is pending. Also, peritonitis. Previous to August, she really denies any specific symptoms and before that time, she has not had any weight change, new constipation, new diarrhea, new blood in urine or stool, skin rashes, or significant weight loss. Today, she describes some just more fatigued feeling. Her pain is well managed. She is not having any nausea, no leg cramps. She does not feel short of breath and does have a slightly sensitive throat. PAST MEDICAL HISTORY: Notable for history of diabetes, hypertension, and hyperlipidemia, also, the perforation, degenerative arthritis. I think she had previous cataract surgery. ALLERGIES: Listed include PENICILLIN and SULFA. FAMILY HISTORY: It sounds like mostly heart disease, mother and father, siblings without issues, children without issues. One of her children from heart failure several years ago. Note that she has 3 cats at home I think she said 2 gingers and 1 black and white. SOCIAL HISTORY: She used to work at [employer] for 30+ years. She is . MEDICATIONS: Currently include vancomycin IV, IV fluids, fentanyl p.r.n., pantoprazole 40 b.i.d. IV, aztreonam q. 6, sodium bicarbonate, hydralazine [address] [address] CONSULTATION Name: MICA CHU Room #: 407-P ADM IN M.R.#: [id number] Admission: 10/18/19 Attend Phys: Nikunj Pierre MD Discharge: Date of : 42 Report #: [id number] p.r.n., insulin on a sliding scale, if I understand right, alteplase as needed. RADIOLOGIC STUDIES: X-ray on this admit include a recent CT abdomen and pelvis done yesterday did describe as showing lack of contrast, had marked thickening of the anterior wall of the gastric antrum, measuring 2.5 cm, increased compared to the past with extensive inflammatory changes in the fat anterior to the stomach, left-sided pleural effusion nearly resolved from before. LABORATORY DATA: BUN of 38, creatinine 3.1, had been 1.7 on earlier admit, total bilirubin 0.2, AST 11, WBC 8.7, hemoglobin 8, MCV 80.1, and platelets 232. TSH 0.663, recently on vitamin B12 on ____. UA had squamous cells. PHYSICAL EXAMINATION: GENERAL: The patient appears her stated age, is an elderly female in the ICU at . ____. VITAL SIGNS: Height is 5 feet 3 inches, 160 cm, weight 187 or 194 pounds, between 85 and 88 kilograms. Blood pressure 152/74, respirations 16, pulse 103, and afebrile at 97.6 orally. NEUROLOGIC: Face is symmetrical. Speech and thought pattern appeared to be normal, though tired. HEENT: Oropharynx clear, but slightly dry. No enlarged lymph nodes. Does have a central catheter in her right chest. ABDOMEN: Postop not examined very fully. LYMPHATICS: No enlarged lymph nodes in the supraclavicular, cervical, axillary, or inguinal region. EXTREMITIES: Maybe have some trace edema. ASSESSMENT AND PLAN: 1. Probable gastric cancer. Await final path. The patient at this time not ____ chemotherapy, which we will respect. I suggest that we await the final path report. If there is any targeted therapy that might be higher response rate that be reasonable considering, we will continue discussing with the patient. She is willing to have an open mind at this point. 2. Postop peritonitis from perforation antibiotics and surgical management per others. 3. Diabetes. Accu-Cheks and insulin and oral agents per others. 4. Acute on chronic renal insufficiency, creatinine of 3.1. Defer to Renal. 5. Hypertension. Meds per others. 6. Hyperlipidemia. Meds per others. 7. Pain, well managed at this time. We will follow with you. <ELECTRONICALLY SIGNED> By: Thomas Castanon MD 10/23/19 [id number] Thomas Castanon MD /nt
[2019-10-23 09:44] LABS: HEMATOCRIT 23.4 % (37.0-47.0); HEMOGLOBIN 7.2 gm/dL (12.0-15.0)
--- NOTE | 2019-10-23 10:38 | NUR ---
SW reviewed chart and spoke with nursing and attending physician. Pt was transferred to [facility]. Path report is pending at this time. Pt was living at home alone prior to admission. Pt and family want to discuss prognosis with physicians. SW is folloiwng to assist as needed with discharge planning.
[2019-10-23 16:02] VITALS: BP 142/71
--- NOTE | 2019-10-23 18:41 | NUR ---
ASSUMED CARE OF PATIENT AT 0715, PATIENT ALERT, BUT NOT RESPONDING WELL. APNEIC BREATHING NOTED, RESP. 10. THIS RN NOTIFIED DR VARELA OF CHANGE IN CONDITION. PATIENT IS A NO CODE. DR VARELA SPOKE WITH THE FAMILY, FAMILY OK WITH COMFORT CARE, SHE STATES PATIENT ACTIVELY DYING. ORDER FOR COMFORT MEDS ARE IN THE COMPUTER. NO MEDS GIVEN THIS SHIFT. PATIENT DENIES PAIN THIS SHIFT. CONSULT FOR DR ARELLANO PUT IN BY [facility]. DR ARELLANO OUT OF TOWN UNTIL THE 8TH. FAMILY HAS BEEN AT BEDSIDE MOST OF THE SHIFT. RIGHT IJ TL HAS NS AT 25CC/HR. MCMAHON CATHETER IN PLACE/250CC OUT. PATIENT RESPONDS MINIMALLY, NO S/S OF DISTRESS, O2 AT 3 LITERS/NC, LAST RESP. 8. WILL CONTINUE TO MONITOR.
[2019-10-23 20:40] VITALS: BP 139/64
--- NOTE | 2019-10-24 04:43 | NUR ---
ASSUMED CARE OF PATIENT AT SHIFT CHANGE. ASSESSMENT CHARTED. MEDICATION ADMINISTERED PER MAR. PATIENT IS ALERT AND ORIENTED BUT SEEMS WITHDRAWN. PATIENT STARES OFF INTO SPACE AT TIMES AND DOES NOT RESPOND TO QUESTIONS. PATIENT DENIES PAIN BUT FROWNS, SEEMS TENSE AND YELLS OUT "HELP". PATIENT CAN ALSO BE TEARFUL. PATIENT HAS FAMILY AT BEDSIDE. PATIENTS SON WILL REMAIN W HER THROUGHOUT NIGHT. RR IS 8 BREATHS PER MINUTE. PATIENTS FAMILY REPORTED HEARING AGONAL BREATHING/GASPING. PATIENT HAD A TEMPERATURE OF 100.2. PROVIDER MATERIAL EXPEDITER WAS NOTIFIED. PATIENT IS ON COMFORT CARE MEASURES. COOL WASHCLOTHS APPLIED TO FOREHEAD. PATIENT HAS NO RECORDED BM SO FAR UPON ADMIT TO UNIT. SLIGHT BRUISING ON L BUTTOCK; REPOSITIONING EVERY 2 HRS OR PER PATIENT REQUEST. REPOSITIONING IS PAINFUL FOR PATIENT; PAIN MEDS GIVEN WHEN REPOSITIONING. PATIENT REACHES OUT TO HOLD HANDS. SHE RESONDS WELL TO THERAPEUTIC TOUCH AND CONSOLATION. PATIENT IS CHECKED AT LEAST EVERY HOUR TO CHECK RESPIRATIONS AND PAIN LEVEL. FALL PRECAUTIONS IN PLACE. ORAL CARE AND ICE CHIPS ADMINISTERED PRN. WILL CONTINUE TO MONITOR FREQUENTLY AND FOLLOW PLAN OF CARE.
[2019-10-24 09:16] VITALS: BP 144/68
--- NOTE | 2019-10-24 13:23 | NUR ---
JAYY reviewed chart and spoke with nursing and attending physician. Pt remains on comfort care measures. Attending physician recommends pt be evaluated for a hospice facility. JAYY met with pt's dtr-in-law and spoke with son via phone to discuss. Options provided for inpt hospice facilities. Pt's son [facility] due to location. retail planner to fax referrals. Order entered for hospice to evaluate pt. JAYY contacted intake at [facility]. JAYY is following to assist as needed with discharge planning.
--- NOTE | 2019-10-24 14:06 | NUR ---
DISCHARGE PLANNING. INPATIENT HOSPICE HOUSE. PATIENT REFERRALS FAXED TO [facility] AND [facility] FOR INPATIENT HOSPICE CARE AND FAMILY CONSULT. FAMILY AT BEDSIDE. UNIT SW AWARE. FOLLOWING.
--- NOTE | 2019-10-24 19:19 | NUR ---
NURSE AGREES WITH PRODUCTION GRIP ASSESSMENT.
[2019-10-24 19:32] VITALS: BP 157/67
[2019-10-24 22:14] VITALS: BP 156/75
--- NOTE | 2019-10-25 00:04 | NUR ---
Assumed pt care at 1900. Pt awake and alert X1 sorrounded by lots of family members at the beginning of shift. C/o abd pain on assessment,medicated with Morphine 5mg SL and resting with eyes closed on reassessment. Respirations shallow, RR 10,tachy, oxygen on at 2L/NC. Raymond cath patent with little output. Has 2 ELENO drains with no output at this time.Abd midline incision intact with huma in place. RIJ patent flushed per protocol. Pt refusing to be turned every 2 hrs[address] Fall precautions in place, frequent monitoring on pt done. Resting quietly at this time,will continue to monitor pt.
[2019-10-25 01:51] VITALS: BP 164/68
[2019-10-25 04:27] VITALS: BP 156/76
[2019-10-25 07:29] VITALS: BP 166/74
--- NOTE | 2019-10-25 10:25 | NUR ---
JAYY reviewed chart and spoke with nursing and attending physician. [facility], Franca, met with pt's family. Pt does meet admission criteria for the [facility]. Pt's family had mentioned that they would prefer to go to [facility] due to location. JAYY spoke with pt's son, Lenard, via phone to provide update. Pt's son had questions regarding why pt is being transferred to a hospice facility. JAYY explained that recommendation for transfer to a hospice facility is made when a pt has remained stable on comfort care measures. Pt's son states that he feels that pt's condition has deteriorated over night and would like attending physician to re-evaluate. Pt's son also requests pt not transfer if she is unstable and would like for pt to be moved to a hospice facility tomorrow due to the weather. JAYY contacted [facility]. Pt remains on their waiting list. JAYY is following to assist as needed with discharge planning.
[2019-10-25 10:48] VITALS: BP 151/84
[2019-10-25 15:07] VITALS: BP 150/75
--- NOTE | 2019-10-25 18:06 | PATH ---
[facility] [place] [address] PATHOLOGY RPT PROCEDURE Name: VLADMICA BULLOCK Room #: 407-P ADM IN M.R.#: [id number] Admission: 10/18/19 Date of : 44 Discharge: Report #: [id number] Path Case #: [id number] [facility] Accession Number: [id number] . 01 Material submitted: . abdomen - OMENTAL MASS FS . 02 Frozen section diagnosis: . FROZEN DIAGNOSIS: FSA1: Omental mass: - Adenocarcinoma. (ANCA:tonya 10/19/2019) . Results are relayed directly to Dr. Bhagat and a note is entered into the medical record. . FROZEN SECTION GROSS DESCRIPTION: Received fresh from the operating room accompanied with a label marked "Mica Kumari, omental mass, frozen section" are two segments of firm yellow to pink soft tissue, one with blue ink along one edge measuring 2.5 x 1.3 x 0.6 cm and the other one measuring 1.8 x 1[address] Bhagat notes he encountered this large omental mass with multiple smaller malignant appearing nodules in this elderly lady and requests intraoperative evaluation. The blue ink represents the edge of firm garcia-white tissue left behind. Black ink is placed on this edge and this segment is serially sectioned and three field support representative sections submitted for frozen studies with the remainder of this tissue frozen submitted in cassette A1. The remainder of this segment and all of the other segment of soft tissue are submitted in cassette A2. (ANCA:pit/jn 10/23/2019) . Frozen section performed at [facility], [address] , [place] [address]. WGB/QTP . 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 SEE COMMENT. . (ANCA:jn; 10/23/2019) S 10/23/2019 1350 Local . 03 Comment: Abundant infiltrating pleomorphic malignant cells as well as well-formed glands containing luminal mucin are seen in the fibrofatty soft tissue sections. A panel of properly controlled immunohistochemical studies [facility] [address] [place] [address] PATHOLOGY RPT PROCEDURE Name: MICA KUMARI Room #: 407-P ADM IN M.R.#: [id number] Admission: 10/18/19 Date of : 44 Discharge: Report #: [id number] Path Case #: [id number] performed on A2 show the neoplastic cells to have the following characteristics: . CK7: Positive CK20: Negative CDX2: Patchy positive CK19: Positive Estrogen Receptor: Negative Progesterone Receptor: Negative . These findings support a gastric primary, although other primaries including pancreatic cannot be entirely excluded. . MICROSATELLITE INSTABILITY REPORT (MSI): . At the request of Dr. Castanon, mismatch repair (MMR) protein immunohistochemical staining was performed. . Specimen: Formalin fixed paraffin embedded tissue Specimen ID: [id number], A2 Reason for testing: To evaluate for evidence of defective mismatch repair proteins. Method: Immunohistochemical staining for the presence or absence of protein expression of one or more of the following MMR protein markers: MLH1, MSH2, MSH6 and PMS2. . . Results: MLH1 - Preserved MSH2 - Preserved MSH6 - Preserved PMS2 - Preserved . Mismatch Repair Status: MMR Proficient (MMR-P) . Interpretation: . All four MMR proteins are preserved within tumor cells. This suggests the presence of normal DNA mismatch repair function within the tumor and an observable defect in mismatch repair is not identified. The likelihood that this patient has an inherited germline mutation syndrome due to defective mismatch repair is reduced but not totally eliminated. If the patient has a strong personal or family history of HPNCC/Soriano syndrome related cancers (colorectal, endometrial, gastric, ovarian, pancreatic, ureter/renal pelvis, biliary tract, brain, small bowel and Cookson-Jvaed syndrome), consider MSI testing by PCR methodology. Suggest clinical correlation and follow up. . [address] [address] PATHOLOGY RPT PROCEDURE Name: MICA KUMARI Room #: 407-P ADM IN M.R.#: [id number] Admission: 10/18/19 Date of : 44 Discharge: Report #: [id number] Path Case #: [id number] These test results are designed for screening purposes only and are useful tools in identifying cancer patients that are more likely to have Soriano Syndrome related diagnoses. Tests should be interpreted in the context of clinical findings, family history and laboratory data. Abnormal IHC results for MMR protein expression are not considered diagnostic for Soriano Syndrome. . . Reviewed with Dr. Pauline Han who agrees with the diagnosis. Preliminary findings discussed with Dr. Castanon at approximately 13:04 on 10/20/[address] Han and again by Dr. Mike Colorado on 10/24/19. Per request of Dr. Castanon, HER2 testing will be performed and will be the subject of an addendum report. (ANCA:jn; 10/23/2019) . 03 Addendum: . Special studies report received from [facility] [address] [place] [address], on case [id number], labeled with their number [id number], dated 10/25/2019. . Material Submitted For Examination 0 slides; 1 paraffin block [id number]; 1 report [id number]. Two H and E recuts from block [id number] are retained for [facility] files. Any original slides submitted, paraffin blocks, and other slides prepared at [facility] are returned. . Clinical Information This is a 78-year-old female with an omental mass, who underwent biopsy on 10/18/2019, revealing adenocarcinoma. Material from the procedure is submitted with a request to perform immunohistochemical stains for HER2 expression, with interpretation. . Final Diagnosis Tissue from biopsy of omentum for immunohistochemical staining (outside block "[id number]", collected on 10/18/2019): . --HER2 immunostain: Negative (0, scale 0-3). No reactivity in any tumor cells . . Electronically Signed Out Cris Cano MD . Microscopic Description The H and E sections consist of fibroadipose tissue with adenocarcinoma. As requested, immunohistochemical stains for HER2 expression are performed on additional sections cut from the submitted paraffin block. They are interpreted manually and without computer assistance, and results in the [facility] [address] [place] [address] PATHOLOGY RPT PROCEDURE Name: VLADMICAAYSHA Room #: 407-P ADM IN M.R.#: [id number] Admission: 10/18/19 Date of : 44 Discharge: Report #: [id number] Path Case #: [id number] neoplastic cells are reported in the diagnosis section above. Thank you for allowing us to study this case. . . Unless specified otherwise above, the quality of the H and E and any other special stains performed at [facility] (AFB, PAS, immunostains, etc.) is satisfactory, and any internal or external positive and negative controls react appropriately. Photographs that may be included in this report represent only selected aspects of the pathologic examination, and should not be considered diagnostic by themselves. . FDA required disclaimer If any immunohistochemical, immunofluorescence, or in-situ hybridization tests are included in this report, these tests were developed and their performance characteristics determined by [facility]. They have not been cleared or approved by the U.S. Food and Drug Administration (FDA). The FDA has determined that such clearance or approval is not necessary. These tests are used for clinical processes. They should not be regarded as investigational or for research. [facility] is certified under Clinical Laboratory Improvement Amendments of 1988 (CLIA) as qualified to perform high complexity clinical laboratory testing. . [employer] (CAP)-required information for predictive/prognostic markers. 1. Type of specimen fixation and processing: If fixed and processed at [facility], 10% neutral buffered formalin is used for fixation and the tissues are routinely processed and paraffin-embedded, unless specified otherwise above. If referred to [facility] from another laboratory, the fixation and processing are determined by the referring laboratory. Unless otherwise specified above in the report, material represents neutral buffered formalin (NBF)-fixed paraffin-embedded tissue that is routinely processed. 2. Detection system used at [facility]: Peroxidase-conjugated polymer. 3. Clones used: Estrogen receptor (ER)-SP1 ([employer]); Progesterone receptor (KY)-16 ([employer]); HER2-SP3 ([employer]); Ki-67-SP6 ([employer]); Information on other clones available by phones at [phone]. 4. Criteria for positive result for ER and KY: greater than or equal to 1% of tumor cells with nuclear staining. ER and KY results are reported as "indeterminate" if there is a problem in specimen handling, processing, or staining that compromises test reliability, in the judgment of the pathologist. Criteria for HER2 protein expression by immunohistochemistry (IHC): POSITIVE HER2 IMMUNOSTAIN is a 3+ IHC result, defined as intense, complete circumferential membrane staining in >10% of tumor cells. EQUIVOCAL HER2 IMMUNOSTAIN is a 2+ IHC result, defined as intense complete circumferential membrane staining in less than or equal to 10% of tumor cells OR circumferential staining that is incomplete and/or weak to moderate in >10% of tumor cells. NEGATIVE HER2 IMMUNOSTAIN is a 0 or 1+ IHC result, defined as follows: 1+ IHC result is incomplete [facility] or [facility] [address] [place] [address] PATHOLOGY RPT PROCEDURE Name: MICA KUMARI Room #: 407-P ADM IN M.R.#: [id number] Admission: 10/18/19 Date of : 44 Discharge: Report #: [id number] Path Case #: [id number] barely perceptible membrane staining within >10% of tumor cells; 0 IHC result is incomplete faint or barely perceptible membrane staining with less than or equal to 10% of tumor cells OR no observable staining of tumor cells. Criteria for interpretation of HER2 immunostains are those advocated in the ASCO/CAP 2018 updated recommendations for HER2 testing in breast cancer, as described in the following link: http://www.cap.org/web/home/pbcaiqfn-ecw-jfkmmmzcis/cap-guidelines/current cap-guidelines/zpzle-pnqjqrthw-evzalh-factor2? drhJmvg=53333589801694#!%40%40%3F afrLoop%[id number]%26 adf.ctrl-state%8Ohofb23en9 4 . Note on Decalcified Specimens: The above assays have not been formally validated on decalcified tissues. Results of immunostains obtained on decalcified specimens should be interpreted with caution given the possibility of an increased likelihood of false negativity on some decalcified specimens. . . A complete copy of the report is on file. . [facility] [place] [address]. Technical services performed [place] [address]. . (ANCA:jn; 10/25/2019) MBR/10/25/2019 Addendum Electronically Signed by Mike Colorado MD, Pathologist . 03 Electronically signed: . Mike Colorado MD, Pathologist NPI- [id number] . 01 Gross description: . PLEASE SEE FROZEN SECTION FOR GROSS DESCRIPTION /QTP 10/19/2019 1402 Local . 03 Pathologist provided ICD-10: C48.1 . 03 CPT . 396826, 825423, L07266, [id number] Specimen Comment: A courtesy copy of this report has been sent to [phone] Specimen Comment: Report sent to Performed at: 01 [facility] [place] [address], [place], [place] [id number] MD Amaury Zelaya MD Phone: [phone] Performed at: 02 [facility] [address] [place] [address] PATHOLOGY RPT PROCEDURE Name: MICA KUMARI Room #: 407-P ADM IN M.R.#: [id number] Admission: 10/18/19 Date of : 44 Discharge: Report #: [id number] Path Case #: [id number] [facility] [address] [place], [place] [id number] MD Pauline Han MD Phone: [phone] Performed at: [address] [facility] [address] [place] [id number] MD Mike Colorado MD Phone: [phone]
--- NOTE | 2019-10-25 18:45 | NUR ---
PATIENT RESTING COMFORTABLY WITH SON AND UIEACDOP-ZL-JWQ AT BEDSIDE. SON INDICATED HE WOULD LIKE PATIENT TO GO TO HOSPICE HOUSE AND APPROVED AND WAITING FOR BED.
[2019-10-25 19:50] VITALS: BP 172/71
[2019-10-26 00:04] VITALS: BP 155/87
--- NOTE | 2019-10-26 05:50 | NUR ---
Assumed pt care at 1900. Pt's A/OX3 this shift and able to make needs known. VSS. Denies pain on assessment. Refused to be repositioned every 2 hrs. Pt has been requesting for H2O this shift and has had an adequate amt. Raymond patent to DD with yellow urine. [address] on RUQ with scant drainage. J-TUBE in place on LUQ. Resting quietly w/o distress at this time,oxygen in place @ 2L/NC. Fall precautions in place,will continue to monitor pt.
[2019-10-26 06:02] VITALS: BP 180/81
--- NOTE | 2019-10-26 10:21 | NUR ---
DISCHARGE NOTE: SW reviewed chart and spoke with nursing and attending physician. marine engine machinist onsite to evaluate pt and met with pt and family. Pt is medically stable for discharge to [facility] today. Ambulance transportation scheduled for 1200 per hospice house request. Outside the Hospital DNR form signed and placed on chart. Pt's family is aware and agreeable with discharge plan. Nursing to call report. store planner faxed discharge orders/summary to [facility]. No additional SW needs identified at this time, but is available to assist should needs arise.
--- NOTE | 2019-10-26 11:29 | NUR ---
ASSUMED PATIENT CARE AT 0700. PATIENT IS AOX3. PATIENT C/O PAIN, PRN PAIN MEDICATION GIVEN. PATIENT HAS HAD 3 LOOSE STOOLS THIS MORNING, THE LAST ONE BEING LIQUID. PATIENT IS INCONTINENT TO BM. UNIQUE CARE GIVEN AND NEW PRESSURE WOUND DISCOVERED, SKIN SHEARING, THE PATIENT REFUSED TO LET US TAKE PICTURES OR PUT ANY KIND OF DRESSING DUE TO NOT WANTING TO ROLL AND PAIN. WHILE CLEANING HER UP THE LAST TIME WE WERE ABLE TO PUT A SMALL DRESSING PER HER PERMISSION BUT NO PICTURES. PATIENT IS BEING D/C TO HOSPICE TODAY. WE HAVE BEEN ABLE TO CHANGE HER POSITION EVERY 2 HOURS BUT PATIENT WILL NOT LAY ON HER SIDE, PILLOWS USED TO CHANGE POSITIONS. PATIENT IS BEDFAST BUT FALL PRECAUTIONS ARE IN PLACE, CALL LIGHT WITHIN REACH.
[2019-10-26 12:03] VITALS: BP 155/82
--- NOTE | 2019-10-26 12:17 | NUR ---
SPOKE WITH [place] AT HOSPICE HOUSE AT 1216 TO GIVE REPORT ON PATIENT.
--- NOTE | 2019-10-30 00:38 | H ---
[facility] [place] [address] HISTORY AND PHYSICAL Name: MICA CHU Room #: 407-P [facility] IN M.R.#: [id number] Admission: 10/18/19 Attend Phys: Nikunj Pierre MD Discharge: 10/26/19 Date of : 44 Report #: [id number] THIS REPORT FOR: //name// CC: Rafael Mills DATE OF SERVICE: 10/18/2019 CHIEF COMPLAINT: Epigastric abdominal pain that started yesterday. HISTORY OF PRESENT ILLNESS: The patient is a very pleasant 78-year-old female with a known history of diabetes mellitus type 2, chronic kidney disease stage 3 and a recent hospitalization in August for perforated gastric ulcer for which she was admitted to ICU and had urgent repair of the gastric ulcer. The patient subsequently went to a prolonged medical stay as well as rehabilitation stay from September 20 to September 26 and the patient was discharged to go home. The patient informs me that she has been feeling very weak and tired since she has been home and she absolutely has not taken any nonsteroidal anti-inflammatory drugs and she has not had any nausea or vomiting either. She did have one clear carbonated beverage in the morning and after that the patient started noticing that she had significant abdominal pain, mainly epigastric area, followed by nausea and vomiting. The patient had absolutely no fever, shaking chills or night sweats. She denies any chest pain. Denies any cough or sputum production or pleuritic chest pain. The patient also did not have any hematochezia or melena. She denies any dysuria, hematuria, frequency or urgency of urination either. She has noticed a little bit of dark urine and decreased urine output in the last 24 hours. The patient has had some diarrheal illness in last couple of days, but denies any abdominal cramping. She has had some continued epigastric discomfort since she got out of the hospital, but it was not at all affecting her day-to-day activity. She has had decreased oral intake for the last several days, mainly because of having poor appetite and these nonspecific abdominal symptoms. However, yesterday morning, the pain got absolutely severe and intolerable and followed by nausea and vomiting and diarrhea and therefore, the patient called Dr. Bhagat who advised the patient to come to the Emergency Room [facility] and get her admitted to the hospital. The patient's son and [id number] are at the bedside and they inform that the patient has been declining with decreased oral intake for quite some time. The patient was advised to stop taking metformin when she was discharged from the acute care hospitalization by Dr. Ugalde and the patient was advised not to resume metformin and continue glimepiride; however, it appears that currently the patient has been on metformin and that could be contributing to the lactic acidosis as well. The patient was advised to avoid any citrus drinks, spicy or caffeinated food or tannin and she has been very compliant with the instructions that she was given. The patient denies any fever, shaking chills or night sweats and denies any sore throat, ear infection as well. [facility] [address] [place] [address] HISTORY AND PHYSICAL Name: MICA CHU Room #: 407-P DIS IN M.R.#: [id number] Admission: 10/18/19 Attend Phys: Nikunj Pierre MD Discharge: 10/26/19 Date of : 44 Report #: [id number] PAST MEDICAL HISTORY: Significant for: 1. Diabetes mellitus type 2. 2. Chronic kidney disease stage 3. 3. Hypertension. 4. Hyperlipidemia. 5. Gastric ulcer perforation, with Ignacio patch placement on 09/09/2019. 6. Peritonitis. 7. History of severe sepsis and severe lactic acidosis. 8. History of acute on chronic renal failure. ALLERGIES: The patient is allergic to PENICILLIN and SULFA, which have caused rash and nausea and vomiting. PAST SURGICAL HISTORY: Significant for cataract in left eye on February 1993 and then cataract in the right eye. The patient also has had great saphenous vein removed from both lower extremities, Ignacio patch placement for gastric ulcer perforation on 09/09/2019. FAMILY HISTORY: Not obtained. PERSONAL AND SOCIAL HISTORY: The patient denies any tobacco or alcohol use. Lives at home, has excellent family support and her son, Lee is durable power of regulatory attorney who is present at the bedside. REVIEW OF SYSTEMS: Ten point review of system was done. Please see HPI in detail. PHYSICAL EXAMINATION: VITAL SIGNS: Temperature 36.4, heart rate 123, respirations 20, blood pressure 139/57, pulse oximetry 97% on room air. GENERAL: Alert and oriented to time, place and person, very pleasant, frail appearing 78-year-old female who is complaining of abdominal pain if she takes a deep breath and so she has been trying to take shallow breaths and is in no acute cardiopulmonary distress. HEENT: Normocephalic, atraumatic. Pupils are equally round and reactive to light. Conjunctivae clear and pale. Sclerae nonicteric. Oropharynx clear. Mucous membranes are dry. No thrush noted. NECK: Supple. No JVD noted. No lymphadenopathy noted. HEART: S1, S2, regular. Tachycardia noted. LUNGS: Clear to auscultation bilaterally without any crackles or wheezes. No chest wall tenderness elicited. ABDOMEN: The patient has diffuse discomfort, worst in the epigastric area and also has mild distention of abdomen, but no rigidity noted at the present time during exam. Bowel sounds present. EXTREMITIES: No edema of both lower extremities noted. [facility] [address] [place] [address] HISTORY AND PHYSICAL Name: VLADMICAAYSHA Room #: 407-P DIS IN M.R.#: [id number] Admission: 10/18/19 Attend Phys: Nikunj Pierre MD Discharge: 10/26/19 Date of : 44 Report #: [id number] NEUROLOGIC: Nonfocal. LABORATORY DATA AND X-RAYS: The patient has sodium of 125, potassium 5.5, chloride 91, bicarbonate 17, anion gap 17, elevated BUN 31, creatinine 3.5, estimated GFR 13, which is significantly lower than her baseline GFR, which is 24-31 which is stage 3-4 kidney disease and lactic acid is markedly elevated at 5.5, calcium 9.2, total bilirubin 0.4, AST 12, ALT 9, alkaline phosphatase 121. Troponin I less than 0.06. Total protein 7.4, albumin 2.0, lipase 78. Hematology indicates WBC 15.8, hemoglobin 10.6, hematocrit 34.4 and platelet count 462 with segmented neutrophils 90.5%. Chest x-ray indicates right lower lobe possible infiltrate and a very small pleural effusion. CT scan of the abdomen and pelvis without contrast was done and it indicates marked thickening of the anterior wall of the gastric antrum and increased gas anteriorly in the wall of stomach with a small amount of free intra-abdominal gas noted as well including new bilateral paracolic fluid collection noted since the prior study on 09/26/2019. Extensive inflammatory changes remain in the mesenteric fat anterior to the stomach, consistent with chronic phlegmon in this area. No walled off abscess present and findings consistent with another perforation and anterior gastric wall with increasing inflammation noted. The previously placed drain catheter has been removed and the left-sided pleural fluid collection is completely resolved. There is right-sided atelectasis noted in the lungs without any infiltrate. MEDICATIONS: The patient's current medications have been acetaminophen 650 mg q.i.d., Zofran q.i.d. p.r.n., sodium bicarbonate, 650 t.i.d., pantoprazole 40 b.i.d., metoprolol succinate 25 mg daily and levothyroxine 200 mcg daily and glimepiride 4 mg daily. ASSESSMENT: 1. Sepsis with severe lactic acidosis and organ dysfunction noted. 2. Perforated gastric ulcer with inflammation of the anterior gastric wall. 3. Acute renal failure along with chronic kidney disease stage 3. 4. Severe dehydration. 5. Diabetes mellitus type 2 with severe hyperglycemia with glucose 550, serum acetone pending at this time and the patient does have elevated anion gap. 6. Hypertension. 7. Anemia of chronic disease. 8. Hypothyroidism. 9. The patient is full code. PLAN: 1. The patient has received normal saline fluid bolus. A Raymond catheter has been placed for accurate intake and output. Nephrology has been consulted for acute renal failure. 2. The patient has received Zosyn and fluconazole in the Emergency Room; [address] [address] HISTORY AND PHYSICAL Name: MICA CHU Room #: 407-P [facility] IN M.R.#: [id number] Admission: 10/18/19 Attend Phys: Nikunj Pierre MD Discharge: 10/26/19 Date of : 44 Report #: [id number] however, the patient has PENICILLIN allergy and has acute renal failure. In this setting, I would give her aztreonam and metronidazole as the patient has been having diarrhea with prolonged antibiotics for last 2-3 weeks. 3. Insulin drip has been started. The patient is being admitted to ICU and will have continuous close monitoring with electrolytes and CBC q. 4 hours. We would go ahead and start Protonix drip. ID consult has been placed for PICC line placement, possibly triple lumen. 4. For hypertension, we will go ahead and use hydralazine. The patient is going to be strict n.p.o. and Dr. Bhagat is planning to take the patient to the operating room as soon as serum glucose and electrolytes have been normalized and OR has been arranged. 5. For moderate to severe malnutrition, we will start PPN as soon as the patient is stabilized postoperatively. Plan of care was discussed with the patient's son at the bedside as well as the patient's [id number] and the patient herself and Dr. Bhagat present at the bedside and plan of care discussed with him as well. We will send stool for fecal leukocyte as well and GI panel for PCR and GI consult has been ordered as well. <ELECTRONICALLY SIGNED> By: Yenni Pierre MD 10/30/19 0038 [id number] Yenni Pierre MD /nt
--- NOTE | 2019-10-31 12:15 | EKG ---
[facility] [place] [address] ELECTROCARDIOGRAM REPORT Name: MICA CHU Room #: 407-P [facility] IN M.R.#: [id number] Admission: 10/18/19 Attend Phys: Nikunj Pierre MD Discharge: 10/26/19 Date of : 44 Report #: [id number] THIS REPORT FOR: cc: Sandro Mills MD, Steven E. MD Lundgren, Craig H. MD [facility] ~ THIS REPORT FOR: //name// [facility] Test Date: 2019-10-18 Test Time: 18:38:17 Pat Name: MICA CHU Department: Room: 242 P Gender: F Repacker: Josr BRANCH : 1940 Requested By: Rafael Bhagat Order Number: [id number] MD: Measurements Intervals [place] Rate: 98 P: -18 MT: 136 QRS: -5 QRSD: 91 T: 22 QT: 358 QTc: 458 Interpretive Statements Sinus rhythm Compared to ECG 09/08/2019 22:30:02 Sinus tachycardia no longer present [email or web address] By: [id number] Mustapha Roy MD, FACC /EPI
--- NOTE | 2019-10-31 12:16 | EKG ---
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
== END 2019-10-26 13:45 | disposition hospice, inpatient (51) | DRG 853 ==
LOC: ER 10:39 → EROBS 13:29 → ICU 13:29 → 4N 10-20 19:24
PROVIDERS: Hospitalist; Internal Medicine; Nurse Practitioner Family; Surgery; ADMIT Pediatrics Neonatal-Perinatal Medicine
PROC: 0DHA3UZ Insertion of Feeding Device into Jejunum, Percutaneous Approach (ICD-10-PCS; principal; 2019-10-18)
PROC: 0DBU0ZX Excision of Omentum, Open Approach, Diagnostic (ICD-10-PCS; principal; 2019-10-18)
PROC: 0DJU0ZZ Inspection of Omentum, Open Approach (ICD-10-PCS; principal; 2019-10-18)
DX: A41.9 Sepsis, unspecified organism (principal); K25.5 Chronic or unspecified gastric ulcer with perforation; E43 Unspecified severe protein-calorie malnutrition; K63.1 Perforation of intestine (nontraumatic); J96.00 Acute respiratory failure, unspecified whether with hypoxia or hypercapnia; C48.1 Malignant neoplasm of specified parts of peritoneum; N17.9 Acute kidney failure, unspecified; N18.4 Chronic kidney disease, stage 4 (severe); E87.1 Hypo-osmolality and hyponatremia; C16.9 Malignant neoplasm of stomach, unspecified; I82.A11 Acute embolism and thrombosis of right axillary vein; I82.B11 Acute embolism and thrombosis of right subclavian vein; J98.11 Atelectasis; E03.9 Hypothyroidism, unspecified; E11.22 Type 2 diabetes mellitus with diabetic chronic kidney disease; E78.5 Hyperlipidemia, unspecified; E86.0 Dehydration; E11.65 Type 2 diabetes mellitus with hyperglycemia; D63.8 Anemia in other chronic diseases classified elsewhere; I12.9 Hypertensive chronic kidney disease with stage 1 through stage 4 chronic kidney disease, or unspecified chronic kidney disease; M19.90 Unspecified osteoarthritis, unspecified site; R65.20 Severe sepsis without septic shock; Z66 Do not resuscitate; D64.9 Anemia, unspecified; Z51.5 Encounter for palliative care; R19.09 Other intra-abdominal and pelvic swelling, mass and lump; I89.0 Lymphedema, not elsewhere classified; Z88.0 Allergy status to penicillin; Z88.2 Allergy status to sulfonamides; Z82.49 Family history of ischemic heart disease and other diseases of the circulatory system; Z98.42 Cataract extraction status, left eye; Z98.41 Cataract extraction status, right eye; Z79.1 Long term (current) use of non-steroidal anti-inflammatories (NSAID)
CPT/HCPCS: 10078; 10790; 50101; 50386; 51412; 56525; 57092; 57103; 57108; 57114; 62110; 62900